=== PATIENT | male | born 1950 | race Caucasian/White ===

== ENCOUNTER → 2016-08-21 | Outpatient (CLI) | payer BC, OTHER ==
[~2016-08-21] VITALS: Ht 177.8 cm; Wt 108.0 kg
[~2016-08-21] MED LIST: ASPI1TAB83 PO; GARL10007 PO; GLIP-197 PO; LISI-461 PO; METF1TAB53 PO; METO1TAB69 PO; MULT-1027 PO; OMEG10007 PO; POTA20TA16 PO; SIMV40TA2 PO
[2016-08-21 14:10] VITALS: Ht 177.8 cm; Wt 108.0 kg
--- NOTE | 2016-08-21 14:49 | PAT Medication Instructions ---
Service Date Aug 21, 2016. Current Home Medication List Aspirin (Aspirin), 1 TAB PO QAM Fish Oil (Douglas-3), 1 CAP PO QAM Garlic (Garlic), 1 TAB PO QAM Glipizide (Glipizide Er), 1 TAB PO QAM Lisinopril (Zestril), 10 MG PO QAM Metformin Hcl (Glucophage Ext Rel), 1,000 MG PO BID Metoprolol Succ (Toprol Xl) (Toprol-Xl ), 100 MG PO QAM Multiple Vitamin (Multi Vitamin), 1 TAB PO QAM Potassium Ext Rel (Klor-Con), 20 MEQ PO QAM Simvastatin (Zocor), 40 MG PO QAM Medication Instructions For Your Scheduled Surgery - Hold the following medications 2 weeks prior to surgery: Fish Oil (Douglas-3), 1 CAP PO QAM Garlic (Garlic), 1 TAB PO QAM - Hold the following medications 48 hours prior to surgery: Metformin Hcl (Glucophage Ext Rel), 1,000 MG PO BID - Hold the following medications the morning of surgery: Multiple Vitamin (Multi Vitamin), 1 TAB PO QAM Potassium Ext Rel (Klor-Con), 20 MEQ PO QAM Lisinopril (Zestril), 10 MG PO QAM Glipizide (Glipizide Er), 1 TAB PO QAM - Take the following medications the morning of surgery with a sip of water: Simvastatin (Zocor), 40 MG PO QAM Metoprolol Succ (Toprol Xl) (Toprol-Xl ), 100 MG PO QAM Aspirin (Aspirin), 81MG TAB PO QAM (okay to continue per surgeon) If you have any questions please call us at [phone] or [phone] or [phone]
[2016-08-21 15:19] LABS: BASO % 0.2 %; BASO ABS # 0.01 K/uL (0-0.2); COMPLETE YES; EOS % 2.5 %; HEMATOCRIT 44.1 % (42-52); IG% 0.2 %; LYMPH % 36.6 %; LYMPH ABS # 2.16 K/uL (1.2-3.4); MEAN CELL VOLUME 92.3 fL (80-100); MEAN CORPUSCULAR HEMOGLOBIN 32.8 pg (25-34); MEAN CORPUSCULAR HGB CONC 35.6 g/dl (32-36); MEAN PLATELET VOLUME 9.4 fL (7.4-10.4); MONO % 7.1 %; NEUT % 53.4 %; PLATELET COUNT 135 K/uL (130-400); RED BLOOD COUNT 4.78 M/uL (4.7-6.1)
[2016-08-21 15:22] LABS: URINE APPEARANCE CLEAR (CLEAR); URINE BILIRUBIN NEG (NEG); URINE COLOR YELLOW; URINE NITRITE NEG (NEG); URINE SPECIFIC GRAVITY 1.034 (1.000-1.030); UROBILINOGEN NEG (NEG); ZZUR CULT IF INDIC CLEAN CATCH NO
[2016-08-21 15:26] LABS: MANUAL MICROSCOPIC REQUIRED? NO; REVIEW REQ? NO
--- NOTE | 2016-08-21 15:28 | DIAGNOSTIC IMAGING REPORT ---
TWO VIEW CHEST CLINICAL HISTORY: Preoperative examination. FINDINGS: PA and lateral chest radiographs are compared to study dated 10/02/2012. The heart is top normal for projection. The mediastinal contour is within normal limits. The lungs and pleural spaces are clear. There is no pneumothorax. The bony thorax appears intact. Degenerative change is noted throughout the thoracic spine. IMPRESSION: No active disease in the chest. Electronically signed by: Keaton Pavon M.D. 08/21/2016 3:26 PM Dictated Date/Time: 08/21/2016 3:26 PM
[2016-08-21 15:29] LABS: INR 0.9 (0.9-1.1); PARTIAL THROMBOPLASTIN RATIO 0.9
[2016-08-21 16:05] LABS: BUN/CREATININE RATIO 17.4 (10-20); CALCIUM 9.1 mg/dl (8.5-10.1); CREATININE 0.85 mg/dl (0.60-1.40); POTASSIUM 4.8 mmol/L (3.5-5.1)
[2016-08-22 06:13] LABS: ESTIMATED AVERAGE GLUCOSE 214 mg/dl; HA1C FLAG Normal (Normal)
== END | disposition home or self-care (01) ==
LOC: C.LAB 08:00 → EDSTATUS 09-26 13:45
PROVIDERS: ATTEND Orthopaedic Surgery Sports Medicine
DX: Z01.810 Encounter for preprocedural cardiovascular examination (principal); Z01.811 Encounter for preprocedural respiratory examination; Z01.812 Encounter for preprocedural laboratory examination; R94.31 Abnormal electrocardiogram [ECG] [EKG]

== ENCOUNTER → 2017-03-05 | Outpatient (CLI) | payer OTHER ==
[~2017-03-05] MED LIST changes: +METO100T44 PO; -METO1TAB69 PO
== END | disposition home or self-care (01) ==
LOC: C.LABMFLN 11:26
PROVIDERS: ATTEND Orthopaedic Surgery Sports Medicine
DX: Z01.810 Encounter for preprocedural cardiovascular examination (principal); Z01.811 Encounter for preprocedural respiratory examination; Z01.812 Encounter for preprocedural laboratory examination

== ENCOUNTER 2017-04-17 04:45 | Inpatient (IN) | payer OTHER ==
[2017-03-05 12:17] LABS: BASO % 0.3 %; BASO ABS # 0.02 K/uL (0-0.2); EOS % 2.5 %; EOS ABS # 0.18 K/uL (0-0.5); HEMATOCRIT 50.2 % (42-52); HEMOGLOBIN 17.8 g/dL (14.0-18.0); IG# 0.02 K/uL (0.00-0.02); LYMPH % 26.9 %; LYMPH ABS # 1.92 K/uL (1.2-3.4); MEAN CELL VOLUME 94.4 fL (80-100); MEAN CORPUSCULAR HEMOGLOBIN 33.5 pg (25-34); MEAN CORPUSCULAR HGB CONC 35.5 g/dl (32-36); MEAN PLATELET VOLUME 9.7 fL (7.4-10.4); MONO % 10.4 %; MONO ABS # 0.74 K/uL (0.11-0.59); NEUT % 59.6 %; NEUT ABS # 4.26 K/uL (1.4-6.5); PLATELET COUNT 144 K/uL (130-400); RED CELL DISTRIBUTION WIDTH CV 13.1 % (11.5-14.5); RED CELL DISTRIBUTION WIDTH SD 44.9 fL (36.4-46.3); WHITE BLOOD COUNT 7.14 K/uL (4.8-10.8)
[2017-03-05 12:35] LABS: PTT PATIENT 24.4 SECONDS (21.0-31.0)
[2017-03-05 12:37] LABS: ALBUMIN 4.2 gm/dl (3.4-5.0); BLOOD UREA NITROGEN 19 mg/dl (7-18); CALCIUM 9.5 mg/dl (8.5-10.1); CARBON DIOXIDE 27 mmol/L (21-32); CREATININE 0.89 mg/dl (0.60-1.40); GLUCOSE 154 mg/dl (70-99); POTASSIUM 4.5 mmol/L (3.5-5.1); SODIUM 137 mmol/L (136-145)
[2017-03-12 15:17] VITALS: Ht 177.8 cm; Wt 100.0 kg
--- NOTE | 2017-04-16 19:27 | HISTORY & PHYSICAL EXAMINATION ---
DATE OF ADMISSION: 04/17/2017 CHIEF COMPLAINT: Chronic left knee pain. HISTORY OF PRESENT ILLNESS: This is a 66-year-old male patient of Dr. Philip's complaining of chronic left knee pain, longstanding, now progressively getting worse. He has been diagnosed with end-stage osteoarthritis per clinical and radiographic exams. The patient has failed conservative treatment including anti-inflammatories and the use of assistive devices. The patient has pain with weightbearing activities and his pain does interfere with his activities of daily living. PAST MEDICAL HISTORY: Angina, coronary artery disease status post an LA in 2006, hypertension, diabetes mellitus, osteoarthritis, dental issues, kidney stones. SOCIAL HISTORY: Nonsmoker, nondrinker. PAST SURGICAL HISTORY: Right and left shoulder surgery. FAMILY HISTORY: Noncontributory. REVIEW OF SYSTEMS: Left knee pain chronically. Otherwise, denies any shortness of breath, chest pain, nausea, vomiting or any other joint complaints. MEDICATIONS: Aspirin 81 mg daily, fish oil daily, garlic daily, Jardiance 10 mg daily, lisinopril 10 mg daily, metformin 1000 mg b.i.d., metoprolol 100 mg daily, multivitamin daily, Nitrostat 0.4 mg as needed sublingual, potassium chloride 20 mEq daily, Zocor 40 mg daily. ALLERGIES: PENICILLIN, AMPICILLIN. PHYSICAL EXAMINATION: GENERAL: Well-developed, well-nourished 66-year-old male, known to Dr. Philip. He is in no acute distress. He is alert and oriented x3 and pleasant. HEENT: Normocephalic, atraumatic. Extraocular motions are intact. Pupils are equal and reactive to light. HEART: Regular, tachycardic rhythm. LUNGS: Clear. ABDOMEN: Soft and nontender, bowel sounds are present. EXTREMITIES: Left knee he has crepitation with a limited range of motion of 0-130 degrees. He has a varus deformity. He has medial joint line tenderness with a positive effusion. He has 5/5 strength. Neurologically and neurovascularly he is intact in the left lower extremity. DIAGNOSES: Left knee end-stage osteoarthritis, history of angina, coronary artery disease status post an LA in 2006, hypertension, diabetes mellitus, osteoarthritis, dental issues, kidney stones. PLAN: The patient was advised of his diagnosis. Indications, risks, benefits, and postop course have all been reviewed. The patient wishes to proceed with a left total knee arthroplasty. Necessary consent forms, preoperative testing and clearances will be obtained.
[~2017-04-17] VITALS: Ht 177.8 cm; Wt 100.0 kg
[2017-04-17] VITALS (7 sets, daily range): BP systolic 102–139; BP diastolic 69–95; PULSE 76–91; TEMP 36.4–36.7; O2SAT 91–98
[~2017-04-17 04:45] MED LIST changes: +EMPA1TAB PO; +METF-384 PO; +METO100T14 PO; -METO100T44 PO; +NTRGSL/4 UT
[2017-04-17] MEDS ORDERED: ACETAMINOPHEN 500 MG TAB PO SCH (06:00)
[2017-04-17] MEDS ORDERED: GABAPENTIN 600 MG PO SCH (06:00)
[2017-04-17] MEDS ORDERED: ROPIVACAINE 5MG/ML 30 ML 150 MG, BUPIVACAINE 0.5% MPF INJ 30 ML, EpINEphrine HCL INJ 0.... INFIL SCH ×7 (06:00)
[2017-04-17] MEDS ORDERED: FAMOTIDINE 20 MG TAB PO SCH (06:00)
[2017-04-17] MEDS ORDERED: CeleBREX 200 MG CAP PO SCH (06:00)
[2017-04-17] MEDS ORDERED: VANCOMYCIN INJ 1,500 MG in SODIUM CHLORIDE 0.9% 500ML 500 ML IV SCH ×2 (06:00→20:00)
[2017-04-17] MEDS ORDERED: LACTATED RINGER'S 1000ML 1,000 ML IV SCH (06:00)
[2017-04-17] MEDS ORDERED: LACTATED RINGER'S 1000ML 500 ML IV SCH (06:00)
[2017-04-17] MEDS ORDERED: METOCLOPRAMIDE HCL 10 MG TAB PO SCH (06:00)
[2017-04-17] MEDS ORDERED: BUPIVACAINE 0.5 % 5 MG/1 ML PF 10ML VIAL ONE (06:25)
[2017-04-17] MEDS ORDERED: BUPIVACAINE 0.25% 30 ML VIAL ONE (06:25)
[2017-04-17] MEDS ORDERED: MIDAZOLAM HCL 1 MG/ML 2ML VIAL ONE (06:32)
[2017-04-17] MEDS ORDERED: FENTANYL CITRATE INJ 50 MCG/1 ML 2 ML VIAL ONE (06:33)
[2017-04-17] MEDS ORDERED: ONDANSETRON INJ 2 MG/ML 2 ML VIAL ONE (06:33)
[2017-04-17] MEDS ORDERED: PROPOFOL IV EMULSION 10 MG/ML 20 ML VIAL IV ONE ×2 (06:33→08:41)
[2017-04-17] MEDS ORDERED: LIDOCAINE HCL 2% 2 ML VIAL (20MG/ML) ONE (06:33)
[2017-04-17] MEDS ORDERED: BACITRACIN 50000 UNIT VIAL ONE (06:53)
[2017-04-17] MEDS ORDERED: ORTHO JOINT ANESTHETIC ONE (06:53)
[2017-04-17] MEDS ORDERED: POVIDONE-IODINE OP SOLN 30 ML BTL ONE (06:53)
--- NOTE | 2017-04-17 07:26 | History & Physical Bridge Note ---
H&P Re-Evaluation Bridge Note: I have examined the patient, reviewed the History & Physical and in the interval since the performance of the History & Physical I have noted the following changes of clinical significance: No changes noted
[2017-04-17] MEDS ORDERED: ATROPINE SULFATE 0.1 MG/ML 5ML SYR IV PRN (07:45)
[2017-04-17] MEDS ORDERED: EpHEDrine SULFATE INJ 50 MG/ML AMP IV PRN (07:45)
[2017-04-17] MEDS ORDERED: EpHEDrine SULFATE INJ 50 MG/ML AMP ONE (07:49)
--- NOTE | 2017-04-17 09:32 | [facility] Post Operative Brief Note ---
Immediate Operative Summary Operative Date Apr 17, 2017. Pre-Operative Diagnosis Left Knee End-Stage Osteoarthritis Post-Operative Diagnosis same as pre-operative Procedure(s) Performed Left Total Knee Arthroplasty Surgeon Dr. Alhaji Philip [facility] [facility] Director Surgeon(s) Rober Bejarano PA-C Estimated Blood Loss 5mL Findings Consistent with Post-Op Diagnosis Specimens Permanent: A. Left Knee Bone and Tissue Drains 2 hemovac Anesthesia Type MAC Spinal Regional Complication(s) none Disposition Disposition: Recovery Room / PACU
[2017-04-17] MEDS ORDERED: METOCLOPRAMIDE HCL INJ 5 MG/ML 2 ML VIAL IV PRN (09:45)
[2017-04-17] MEDS ORDERED: MAGNESIUM HYDROXIDE SUSP 30 ML UDC PO PRN (09:45)
[2017-04-17] MEDS ORDERED: VANCOMYCIN CONSULT ACTIVE PRN (09:45)
[2017-04-17] MEDS ORDERED: NITROGLYCERIN 0.4 MG SL PER TAB CHARGE UT SCH (09:45)
[2017-04-17] MEDS ORDERED: BISACODYL 10 MG SUPP PR PRN (09:45)
[2017-04-17] MEDS ORDERED: ONDANSETRON INJ 2 MG/ML 2 ML VIAL IV PRN (09:45)
[2017-04-17] MEDS ORDERED: MoRPHine SULFATE 2 MG/ML CARP IV PRN (09:45)
[2017-04-17] MEDS ORDERED: SOD PHOSPHATE/SOD BIPHOSPHATE ENEMA 132 ML BTL PR PRN (09:45)
[2017-04-17] MEDS ORDERED: ZOLPIDEM TARTRATE 5 MG TAB PO PRN (09:45)
--- NOTE | 2017-04-17 10:12 | Anesthesiology Progress Note ---
Anesthesia Post Op Note Date & Time Apr 17, 2017 at 10:12 Vital Signs Pain Intensity: 0 Vital Signs Past 12 Hours Date Time Temp Pulse Resp B/P (MAP) Pulse Ox O2 Delivery O2 Flow Rate FiO2 04/17/17 09:55 36.4 88 16 120/80 97 Nasal Cannula 3 04/17/17 09:45 82 18 110/77 98 Oxymask 3 04/17/17 09:37 36.5 82 17 111/68 98 Oxymask 5 04/17/17 06:10 36.6 76 20 139/95 96 Room Air Notes Mental Status: alert / awake / arousable, participated in evaluation Pt Amnestic to Procedure: Yes Nausea / Vomiting: adequately controlled Pain: adequately controlled Airway Patency, RR, SpO2: stable & adequate BP & HR: stable & adequate Hydration State: stable & adequate Neuraxial Anesthesia: was administered, sensory block is resolving Anesthetic Complications: no major complications apparent
--- NOTE | 2017-04-17 10:27 | DIAGNOSTIC IMAGING REPORT ---
L KNEE 2 VIEWS ROUTINE CLINICAL HISTORY: Degenerative arthritis COMPARISON: September 2012 DISCUSSION: There are postsurgical changes of a total left knee arthroplasty and patellar resurfacing. The femoral and tibial components appear well seated. Overlying skin swapnil and surgical drains are evident. There is air within soft tissues consistent with recent surgery. IMPRESSION: Postsurgical changes of a total left knee arthroplasty. Electronically signed by: Rigo Hernandez M.D. 04/17/2017 10:26 AM Dictated Date/Time: 04/17/2017 9:54 AM
[2017-04-17] MEDS ORDERED: INSULIN ASPART 100 UNITS/ML 3 ML PEN SC SCH (11:00)
[2017-04-17] MEDS ORDERED: GLUCAGON FOR INJ 1 MG VIAL SQ PRN ×2 (11:15→11:45)
[2017-04-17] MEDS ORDERED: GLUCOSE 10 TABS/TUBE PO PRN ×2 (11:15→11:45)
[2017-04-17] MEDS ORDERED: MoRPHine SULFATE 4 MG/ML 1 ML CARP\\VIAL IV PRN (11:15)
[2017-04-17] MEDS ORDERED: GLUCOSE 40% GEL 15 GM TUBE PO PRN ×2 (11:15→11:45)
[2017-04-17] MEDS ORDERED: DEXTROSE 50% 50 ML SYR IV PRN ×2 (11:15→11:45)
[2017-04-17] MEDS ORDERED: DC ALL PREVIOUSLY ORDERED DIABETES MEDS ONE (11:45)
--- NOTE | 2017-04-17 11:53 | OPERATIVE REPORT ---
DATE OF OPERATION: 04/17/2017 HISTORY OF PRESENT ILLNESS: The patient is a 66-year-old male who presented with chronic bilateral knee pain, left greater than right. He has had arthroscopic surgery of his left knee in the past. He has had extensive conservative management and progressive osteoarthritis over time. He is now bone on bone in the medial compartment, both of his knees. PREOPERATIVE DIAGNOSIS: End-stage osteoarthritis of the left knee. POSTOPERATIVE DIAGNOSIS: Same. PROCEDURE: Left total knee arthroplasty. SURGEON: Dr. Alhaji Philip. FEEDER DRIVER: IVAN Cagle. ANESTHESIA: Spinal sedation, adductor nerve block and Orthomix. OPERATIVE PROCEDURE: The patient was taken to the operating room, anesthetized under anesthesia as dictated. He was placed supine on the operating room table. Pneumatic tourniquet was placed about his left upper thigh. Left lower extremity was examined under anesthesia. He had no instability. He had full range of motion and a varus knee. He did not have a significant effusion. His tibial tubercle was slightly prominent. His left lower extremity was prepped and draped with ChloraPrep. Leg was elevated, exsanguinated with Esmarch bandage. Pneumatic tourniquet was raised to 300 mmHg. Anterior incision made across the left knee. Skin was incised sharply. Subcutaneous tissues were dissected to expose the fascia. An incision was made through the medial retinaculum and extended up in the mid third of the quadriceps tendon and extended down to the medial tibial tubercle. Intraarticular findings demonstrated grade 4 [id number] in the medial compartment, which had previous partial medial meniscectomy. He had some tearing of the lateral meniscus. Cruciate ligaments were intact. He had some areas of grade 4 wear on the lateral femoral condyle as well. I used the [employer] 2.0 total knee arthroplasty system. We used conventional instrumentation. To expose the knee, I excised the infrapatellar fat pad, excised the meniscal remnants and excised the cruciate ligaments. I released lateral synovial bands. Excised the fat pad over the anterior surface of the femur for the placement of the flange of the component in that area. The femur was exposed. Intramedullary drill hole was made into the femoral canal. The guide astrid was placed and the distal femoral cutting guide was set at 5 degrees valgus and a standard distal femoral cut was made. The knee was then extended and a subperiosteal peel lateral release was performed around the patella. Patella width was measured and width was reproduced using a freehand cut technique and a 35-mm domed patellar component. Drill holes were made for the patella. The excess lateral facet was beveled off to prevent any impingement. The femur was re-exposed with better retraction. The sizing guide was pinned in position and placed to line up with the epicondylar access just over 3 degrees of external rotation. The femur was sized for a 7, which corresponded with our preoperative templating. The 5-1 cutting block was then placed. Then, the anterior, posterior and chamfer cuts were made on the femur. Then, the tibia was subluxed and the external tibial cutting guide was used to make a perpendicular cut to the long axis of the tibia. We made this below the most efficient medial side. The lamina slab puller was used to help balance the ligaments. Then, the tibia was re-exposed. The tibia was sized for a 6 tibial component. It was externally rotated in line with the tibial tubercle and this was pinned in position and the punch for the stem was used. Then, the 7 femoral trial was inserted and centered and the notch cutting devices were used. A collet was placed and we did a trial insert size 9 and there was tightness in the anterior medial compartment of the knee only with the anterior most band of the MCL being tight, so I went ahead and used the lamina slab puller, pie crusted this small band and then balanced the ligaments perfectly and an 11-insert was placed and the knee had a complete stable range of motion through full range of motion and it was completely balanced and the patella tracked centrally. The trials were removed and the anesthetic cocktail was injected per protocol. The knee was copiously irrigated with pulsatile lavage antibiotic solution and bacitracin. The final components were cemented with Simplex cement. Final components were the 7 Oxinium left posterior stabilized [employer] 2.0 femur, the 6 tibial primary base plate, the 11-mm high flex posterior stabilized tibial insert, and the 35-mm domed patella. All excess cement was cleared. Betadine soak was used per protocol. When the cement cured, the knee was again irrigated out with antibiotic solution and bacitracin. Two drains were brought out laterally and connected to a Hemovac. The quadriceps tendon and medial retinaculum were closed with interrupted [id number] #1 Vicryl sutures. The knee was taken through full range of motion and repair was secure. Subcutaneous tissue was closed with 2-0 Vicryl sutures. Skin was closed with swapnil. Silverlon sterile dressing was applied. The patient tolerated the procedure well with 5 mL of blood loss. IVAN Cagle, was my first cook. He functioned as the first cook in the entire procedure. He assisted in prepping, draping, leg positioning, soft tissue retraction, instrument management and assisted in subcutaneous and skin closure and will participate in postoperative care of the patient. I attest to the content of the Intraoperative Record and any orders documented therein. Any exceptions are noted below. ESPERANZA
--- NOTE | 2017-04-17 12:18 | Medical Consult ---
Consultation Date of Consultation: Apr 17, 2017. Attending Physician: Alhaji Philip M.D. Reason for Consultation: Medical management History of Present Illness Pt is 66 y/o M with PMH CAD, DM II, HTN, HLD is seen as medical consult after L TKA by Dr Philip today. Denies nausea or vomiting. Denies any pain currently. He feels like regaining sensation to lower extremities. Pt reports had 2 BMs this morning prior to surgery. Feels like passing gas since surgery. Denies CP, SOB, PANG, dizziness, cough, fever/chills, diaphoresis, vision changes, neck pain , CP, SOB, palpitations, abdominal pain, rashes. Past Medical/Surgical History Medical Problems: (1) CAD (coronary artery disease) Status: Chronic (2) DM type 2 (diabetes mellitus, type 2) Status: Chronic (3) HTN (hypertension) Status: Chronic (4) Hyperlipidemia Status: Chronic Surgical Problems: (1) History of carpal tunnel surgery of right wrist Status: Resolved (2) Hx of arthroscopy of left knee Status: Resolved (3) Hx of repair of left rotator cuff Status: Resolved Family History Diabetes mellitus Social History Smoking Status: Former Smoker (smoked 0.5ppd x 3 years. Quit 30 years ago) Smokeless Tobacco Use: No Alcohol Use: occasionally Drug Use: none Marital Status: Housing Status: lives with family Allergies Coded Allergies: Penicillins (Verified Allergy, Unknown, RASH, 04/17/17) Current Inpatient Medications Current Inpatient Medications Medications (Trade) Dose Ordered Sig/Viktoriya Route Start Time Stop Time Status Last Admin Dose Admin Acetaminophen (Tylenol Tab) 1,000 mg PREOP PO 04/17/17 06:00 04/17/17 18:00 04/17/17 05:51 1,000 MG Celecoxib (CeleBREX CAP) 200 mg PREOP PO 04/17/17 06:00 04/17/17 18:00 04/17/17 05:51 200 MG Famotidine (Pepcid Tab) 20 mg PREOP PO 04/17/17 06:00 04/17/17 18:00 04/17/17 05:50 20 MG Gabapentin (Neurontin Cap) 600 mg PREOP PO 04/17/17 06:00 04/17/17 18:00 04/17/17 05:50 600 MG Metoclopramide HCl (Reglan Tab) 10 mg PREOP PO 04/17/17 06:00 04/17/17 18:00 04/17/17 05:50 10 MG Ephedrine Sulfate (EpHEDrine SULFATE INJ) 5 mg Q5M PRN IV 04/17/17 07:45 04/17/17 12:30 Atropine Sulfate (Atropine Sulfate 0.1mg/ml Inj) 0.5 mg Q1M PRN IV 04/17/17 07:45 04/17/17 12:30 Lisinopril (Zestril Tab) 10 mg QAM PO 04/18/17 09:00 05/18/17 08:59 Metoprolol Tartrate (Lopressor Tab) 100 mg QAM PO 04/18/17 09:00 05/18/17 08:59 Nitroglycerin (Nitrostat Tab) 0.4 mg PRN UT 04/17/17 09:45 05/17/17 09:44 Potassium Chloride (Klor-Con Tab) 20 meq QAM PO 04/18/17 09:00 05/18/17 08:59 Simvastatin (Zocor Tab) 40 mg QAM PO 04/18/17 09:00 05/18/17 08:59 Sodium Chloride 1,000 ml @ 100 mls/hr Q10H IV 04/17/17 11:15 04/18/17 11:14 Vancomycin HCl 1500 mg/Sodium Chloride 530 ml @ 200 mls/hr Q12H IV 04/17/17 20:00 04/17/17 22:38 Oxycodone HCl (Roxicodone Immediate Rel Tab) 1 TABLET FOR PAIN RATING... Q4H PRN PO 04/17/17 09:45 05/01/17 09:44 Morphine Sulfate (MoRPHine SULFATE INJ) 2 mg Q2H PRN IV 04/17/17 09:45 05/01/17 09:44 Acetaminophen (Tylenol Tab) 1,000 mg Q8H PO 04/17/17 14:00 05/17/17 13:59 Magnesium Hydroxide (Milk Of Magnesia Susp) 30 ml Q6H PRN PO 04/17/17 09:45 05/17/17 09:44 Bisacodyl (Dulcolax Supp) 10 mg DAILY PRN NE 04/17/17 09:45 05/17/17 09:44 Sodium Biphosphate/ Sodium Phosphate (Fleet Enema) 132 ml DAILY PRN NE 04/17/17 09:45 05/17/17 09:44 Docusate Sodium (coLACE CAP) 100 mg BID PO 04/17/17 21:00 05/17/17 20:59 Diphenhydramine HCl (Benadryl Cap) 25 mg Q8H PRN PO 04/17/17 09:45 05/17/17 09:44 Zolpidem Tartrate (Ambien Tab) 5 mg HSZ PRN PO 04/17/17 09:45 05/17/17 09:44 Multivitamins (Multivitamin Tab) 1 tab QAM PO 04/18/17 09:00 05/18/17 08:59 Ondansetron HCl (Zofran Inj) 4 mg Q6H PRN IV 04/17/17 09:45 05/17/17 09:44 Metoclopramide HCl (Reglan Inj) 10 mg Q6H PRN IV 04/17/17 09:45 05/17/17 09:44 Pantoprazole Sodium (Protonix Tab) 40 mg QAM PO 04/18/17 09:00 04/21/17 09:01 Tramadol HCl (Ultram Tab) 1 tablet for pain rating... Q4H PRN PO 04/17/17 09:45 05/17/17 09:44 Aspirin (Ecotrin Tab) 81 mg BID PO 04/17/17 21:00 05/17/17 20:59 Insulin Aspart (novoLOG ASPART) SLIDING SCALE G... ACHS SC 04/17/17 11:00 05/17/17 10:59 Morphine Sulfate (MoRPHine SULFATE INJ) 4 mg Q2H PRN IV 04/17/17 11:15 05/01/17 11:14 Insulin Human Regular (novoLIN-R) SLIDING SCALE IF C... ACHS SC 04/17/17 12:00 05/17/17 11:59 UNV Glucose (Glucose 40% Gel) 15-30 GRAMS 15 GRAMS... UD PRN PO 04/17/17 11:45 05/17/17 11:44 Glucose (Glucose Chew Tab) 4-8 Tablets 4 Tabl... UD PRN PO 04/17/17 11:45 05/17/17 11:44 Dextrose (Dextrose 50% 50ML Syringe) 25-50ML OF 50% DW IV FOR... UD PRN IV 04/17/17 11:45 05/17/17 11:44 Glucagon (Glucagon Inj) 1 mg UD PRN SQ 04/17/17 11:45 05/17/17 11:44 Review of Systems See HPI for pertinent positives & negatives. All other systems reviewed and were otherwise negative Physical Exam Date Time Temp Pulse Resp B/P (MAP) Pulse Ox O2 Delivery O2 Flow Rate FiO2 04/17/17 11:20 85 18 108/70 (83) 98 2.0 04/17/17 10:50 Nasal Cannula 2.0 04/17/17 10:50 Nasal Cannula 04/17/17 10:50 36.6 85 16 102/70 (81) 92 Nasal Cannula 2.0 04/17/17 10:30 80 16 104/76 95 Nasal Cannula 3 04/17/17 10:15 82 16 111/78 95 Nasal Cannula 3 04/17/17 10:05 85 16 119/78 96 Nasal Cannula 3 04/17/17 09:55 36.4 88 16 120/80 97 Nasal Cannula 3 04/17/17 09:45 82 18 110/77 98 Oxymask 3 04/17/17 09:37 36.5 82 17 111/68 98 Oxymask 5 04/17/17 06:10 36.6 76 20 139/95 96 Room Air General Appearance: WD/WN, no apparent distress Head: normocephalic, atraumatic Eyes: normal inspection, PERRL, EOMI, sclerae normal ENT: hearing grossly normal, pharynx normal, + pertinent finding (mucous membranes moist) Neck: supple, no JVD, trachea midline Respiratory/Chest: lungs clear, normal breath sounds, no respiratory distress, no accessory muscle use Cardiovascular: regular rate, rhythm, no murmur, normal peripheral pulses Abdomen/GI: normal bowel sounds, non tender, soft Extremities/Musculoskelatal: normal capillary refill, no pedal edema, + pertinent finding (dressing in place to left knee, sensation to light touch intact bilaterally. pedal pushes and pulls intact bilaterally ) Neurologic/Psych: alert, normal mood/affect, oriented x 3 Skin: normal color, warm/dry Laboratory Results Last 24 Hours Test 04/17/17 09:48 Bedside Glucose 148 mg/dl Assessment & Plan Pt post op day#0 S/P L TKA by Dr Philip -pain management per ortho -wound management per ortho -PT/OT as appropriate -DVT prophylaxis per ortho - ASA 81mg bid -incentive spirometry -monitor H&H for acute blood loss anemia DM II HA1C 02/11 was 6.7 -hold metformin, glipizide, Jardiance -NovoLog sliding scale HTN Stable -continue metoprolol, lisinopril CAD, Hx ND No CP or SOB. Reported cardiac clearance by cardiology prior to surgery -continue ASA, metoprolol, statin DVT Prophylaxis -per ortho Disposition admitted med/surg Full Code Follows with Dr Dozier for routine care Pt was seen with Dr Redding. See addendum ATTENDING NOTE: pt seen and examined, care co ordinated with Parris JEFFRIES 66 yo M with hx of type 2 DM . well controlled on oral meds, CAD underwent elective left knee replacement surgery for end stage DJD recovering well post op no complain of chest pain or SOB , post op pain in left knee well controlled P/E: Gen ; no sign of distress HEENT ; sclera non icteric , PERRLA/EOMI Ht : regular . S1/S2 lungs: CTA abdomen : soft , non tender ext ; s/p left knee replacement , drain and bandage intact , normal peripheral pulse and capillary refill neuro; no focal deficit A/P : Left knee TKA : cont management as per Ortho in agreement with DVT prophylaxis of 81 mg BID TYPE 2 DM well controlled , HB A1c on 02/23/17 6.9 hold oral meds insulin SSI please refer to Parris Trejo PA-C for further discussion of other issues Malinda Redding MD Additional Copies To Russel Dozier M.D.
[2017-04-17] MEDS: ACETAMINOPHEN 500 MG TAB PO SCH ×2 (13:49→21:10)
[2017-04-17] MEDS: INSULIN HUMAN REGULAR SC SCH ×3 (13:53→21:28)
[2017-04-17] MEDS: SODIUM CHLORIDE 0.9% 1000ML 1,000 ML IV SCH (15:51)
[2017-04-17] MEDS: OXYCODONE HCL IR 5 MG TAB (IMMEDIATE RELEASE) PO PRN (15:51)
[2017-04-17] MEDS: TRAMADOL HCL 50 MG TAB PO PRN (20:06)
[2017-04-17] MEDS: DOCUSATE SODIUM 100 MG CAP PO SCH (21:10)
[2017-04-17] MEDS: ASPIRIN 81 MG ECTAB PO SCH (21:10)
[2017-04-18 03:15] VITALS: BP 104/70; PULSE 92; TEMP 37; O2SAT 92
[2017-04-18] MEDS: SODIUM CHLORIDE 0.9% 1000ML 1,000 ML IV SCH ×2 (04:45→07:15)
[2017-04-18] MEDS: ACETAMINOPHEN 500 MG TAB PO SCH ×3 (05:43→21:29)
[2017-04-18 07:26] LABS: HEMATOCRIT 35.9 % (42-52); HEMOGLOBIN 12.4 g/dL (14.0-18.0); MEAN CELL VOLUME 94.5 fL (80-100); MEAN CORPUSCULAR HEMOGLOBIN 32.6 pg (25-34); MEAN CORPUSCULAR HGB CONC 34.5 g/dl (32-36); MEAN PLATELET VOLUME 8.5 fL (7.4-10.4); PLATELET COUNT 102 K/uL (130-400); RED CELL DISTRIBUTION WIDTH CV 13.3 % (11.5-14.5); RED CELL DISTRIBUTION WIDTH SD 45.7 fL (36.4-46.3); WHITE BLOOD COUNT 7.81 K/uL (4.8-10.8)
[2017-04-18 07:57] LABS: CALCIUM 7.7 mg/dl (8.5-10.1); CREATININE 0.83 mg/dl (0.60-1.40); POTASSIUM 5.1 mmol/L (3.5-5.1)
--- NOTE | 2017-04-18 08:25 | Orthopedic Progress Note ---
Orthopedic Progress Note Date of Service Apr 18, 2017. Subjective Post OP Day: 1 Reports: feeling well, pain controlled w PO medications, Denies: complaints, chest pain, SOB, nausea / vomiting, light headedness, calf pain Objective calves soft nontender, N/V intact, capillary refill less than 2 sec., dressing C /D/I, A&O x3, toes mobile Date Time Temp Pulse Resp B/P (MAP) Pulse Ox O2 Delivery O2 Flow Rate FiO2 04/18/17 07:15 Room Air 04/18/17 03:15 37.0 92 16 104/70 (81) 92 Room Air 04/17/17 23:15 36.7 91 18 103/71 (82) 91 Room Air 04/17/17 20:17 36.5 88 19 107/69 (82) 93 Room Air 04/17/17 18:45 Room Air 04/17/17 15:13 36.4 79 19 122/80 (94) 97 Nasal Cannula 2.0 04/17/17 12:17 81 18 108/70 (83) 96 Nasal Cannula 2.0 04/17/17 11:20 85 18 108/70 (83) 98 2.0 04/17/17 10:50 Nasal Cannula 2.0 04/17/17 10:50 Nasal Cannula 04/17/17 10:50 36.6 85 16 102/70 (81) 92 Nasal Cannula 2.0 04/17/17 10:30 80 16 104/76 95 Nasal Cannula 3 04/17/17 10:15 82 16 111/78 95 Nasal Cannula 3 04/17/17 10:05 85 16 119/78 96 Nasal Cannula 3 04/17/17 09:55 36.4 88 16 120/80 97 Nasal Cannula 3 04/17/17 09:45 82 18 110/77 98 Oxymask 3 04/17/17 09:37 36.5 82 17 111/68 98 Oxymask 5 Laboratory Results 24 Hours: Test 04/18/17 07:11 Hematocrit 35.9 % Hemoglobin 12.4 g/dL Assessment & Plan Assessment: POD #1, Left TKA Plan: PT/ OT DVT proph- ASA D/C planning- HH vs. OPPT per medicine. Inhouse Planning Pain Management: Ultram, Morphine, PO Tylenol, Oxy IR DVT Prophylaxis: TEDs, SCDs, ASA Discharge Planning Discharge Planning: home with home health Pain Management: PO Tylenol, Oxy IR DVT Prophylaxis: TEDs, ASA Therapy: Physical Therapy, Occupational Therapy
--- NOTE | 2017-04-18 08:26 | Discharge Instructions ---
Discharge Instructions Date of Service Apr 18, 2017. Admission Reason for Admission: Left Knee Degenerative Joint Disease Discharge Discharge Diagnosis / Problem: Left TKA Discharge Goals Goal(s): Improve function Activity Recommendations Activity Limitations: as noted below . Instructions / Follow-Up Instructions / Follow-Up ACTIVITY RECOMMENDATIONS: SELF CARE INSTRUCTIONS AFTER TOTAL KNEE REPLACEMENT A. You may need to continue a physical therapy program after discharge from the hospital. There are several options available to you. Your doctor will assist you in selecting the best one for you. 1. An out-patient facility 2 to 3 times a week for therapy or home therapy. 2. Continue working on all exercises taught to you in the hospital. Your goals should be to increase bending of your knee to 90 degrees and beyond and to fully straighten your knee. B. You may progress at your own pace from walking with a walker or crutches to a cane; then to no assistive devices. C. Make walking a part of your daily routine. Be up as much as comfortable with rest periods throughout the day. Rest with leg elevation is very important. Use the ice wrap frequently for the first 3-4 weeks. D. There are no restrictions on activities. You may ride in a car, shop, participate in weigh and charge worker and all social activities. E. Wear the long elastic stockings (WICHO hose) 20 hours a day for 2 weeks after surgery. They can be removed several times a day for laundering and for a bath. F. You may shower, no tub baths until cleared by your doctor. SPECIAL CARE INSTRUCTIONS: VERY IMPORTANT TO READ AND REVIEW A. There are a few signs you need to watch for after you are home. Call [facility] if you notice any of the followin. Increased severe knee pain. Some pain is expected especially when you exercise. 2. Increased swelling in your leg or knee; pain or swelling of the calf muscle in either lower leg. 3. Any fluid drainage from the incision. 4. Shortness of breath or chest pain. B. Please call [facility] at if you have any concerns or questions about your operation or recovery. The doctor or his nurse will return your call promptly. C. You must take antibiotics before dental work, bladder, bowel or other surgery. Your doctor will provide you with a permanent care to carry describing this precaution. IMPORTANT: * REMEMBER TO TAKE ASPIRIN, 81 MG, TWICE DAILY FOR 4 WEEKS UNLESS OTHERWISE DIRECTED. THIS IS YOUR BLOOD THINNER. * HIGH RISK PATIENTS MAY BE PRESCRIBED A STRONGER BLOOD THINNER. THIS WILL BE PROVIDED AT DISCHARGE. * CALL IF INCREASED PAIN, REDNESS, DRAINAGE OR FEVER GREATER THAT 101. * WEAR WICHO HOSE 20 HOURS PER DAY FOR 2 WEEKS. * YOU MAY HAVE A LARGE BAND-AID LIKE DRESSING (SILVERON). THIS WILL REMAIN ON YOUR INCISION FOR 7 DAYS, THEN CAN BE REMOVED. IF INCISION IS LEAKING THROUGH DRESSING, CALL THE OFFICE . FOLLOW UP VISIT: If appointment is not already scheduled: Please call [facility] to make a follow-up appointment for 2 weeks after your surgery at . Current Hospital Diet Patient's current hospital diet: Diabetes Type 2 Diet Discharge Diet Recommended Diet: Diabetes Type 2 Diet Procedures Procedures Performed: Left Total Knee Arthroplasty Pending Studies Studies pending at discharge: no Medical Emergencies . Who to Call and When: Medical Emergencies: If at any time you feel your situation is an emergency, please call [phone] immediately. . Non-Emergent Contact Non-Emergency issues call your: Primary Care Provider . "Provider Documentation" section prepared by Rober Bejarano. . VTE Core Measure Inpt VTE Proph given/why not?: Other Anticoagulation (asa), TYeni Ryan, SCD's [place] Drug Monitoring Program Search Results: patient reviewed within database, no issues identified
[2017-04-18 08:38] VITALS: BP 123/79; PULSE 91; TEMP 37.1; O2SAT 95
[2017-04-18] MEDS: MULTIVITAMIN TAB PO SCH (08:57)
[2017-04-18] MEDS: METOPROLOL TARTRATE 100 MG TAB PO SCH (08:57)
[2017-04-18] MEDS: LISINOPRIL 10 MG TAB PO SCH (08:57)
[2017-04-18] MEDS: POTASSIUM CHLORIDE 20 MEQ TABCR PO SCH (08:57)
[2017-04-18] MEDS: SIMVASTATIN 40 MG TAB PO SCH (08:57)
[2017-04-18] MEDS: PANTOprazole SOD 40 MG TAB PO SCH (08:58)
[2017-04-18] MEDS: DOCUSATE SODIUM 100 MG CAP PO SCH ×2 (08:58→21:28)
[2017-04-18] MEDS: ASPIRIN 81 MG ECTAB PO SCH ×2 (08:58→21:28)
[2017-04-18] MEDS: INSULIN HUMAN REGULAR SC SCH ×4 (09:01→21:28)
[2017-04-18] MEDS: OXYCODONE HCL IR 5 MG TAB (IMMEDIATE RELEASE) PO PRN (09:07)
--- NOTE | 2017-04-18 10:34 | Anesthesiology Progress Note ---
Anesthesia Post Op Note Date & Time Apr 18, 2017 at 10:34 Vital Signs Vital Signs Past 12 Hours Date Time Temp Pulse Resp B/P (MAP) Pulse Ox O2 Delivery O2 Flow Rate FiO2 04/18/17 08:38 37.1 91 18 123/79 (94) 95 Room Air 04/18/17 07:15 Room Air 04/18/17 03:15 37.0 92 16 104/70 (81) 92 Room Air 04/17/17 23:15 36.7 91 18 103/71 (82) 91 Room Air Notes Mental Status: alert / awake / arousable, participated in evaluation Pt Amnestic to Procedure: Yes Nausea / Vomiting: adequately controlled Pain: adequately controlled Airway Patency, RR, SpO2: stable & adequate BP & HR: stable & adequate Hydration State: stable & adequate Neuraxial Anesthesia: sensory block resolved Anesthetic Complications: no major complications apparent
[2017-04-18 15:17] VITALS: BP 95/62; PULSE 89; TEMP 37.1; O2SAT 93
[2017-04-18] MEDS: TRAMADOL HCL 50 MG TAB PO PRN (16:51)
--- NOTE | 2017-04-18 22:21 | Progress Note ---
Medicine Progress Note Date & Time of Visit: Apr 18, 2017 at 16:15. Subjective 66 yo diabetic M with h/o heart disease underwent elective L TKA. -doing well post-op -pain controlled -tolerating PO -denies CP or SOB. Objective Last 8 Hrs Date Time Temp Pulse Resp B/P (MAP) Pulse Ox O2 Delivery O2 Flow Rate FiO2 04/18/17 15:17 37.1 89 19 95/62 (73) 93 Room Air 04/18/17 08:38 37.1 91 18 123/79 (94) 95 Room Air Physical Exam: GEN: WNWD, in no acute distress, alert and appropriate HEENT: NC/AT, normal sclerae, MMM CARDIO: reg rate, S1/2 heard without m/g/r LUNGS: CTA bilaterally, no crackles, rales or wheezes, good diaphragmatic excursion ABD: soft, non-tender, non-distended, no rebound or guarding, +BS EXTREMITY: RP and DP palpable 2+ bilat, no LE swelling or edema, extremities are warm and well-perfused. L knee wrapped in GREGORIO. NEURO: CN 2-12 grossly intact, sensation intact throughout SKIN: warm and dry Laboratory Results: 04/18/17 07:11 04/18/17 07:11 Test 03/05/17 10:30 04/18/17 07:11 04/18/17 20:46 Immature Granulocyte % (Auto) 0.3 % White Blood Count 7.14 K/uL (4.8-10.8) Red Blood Count 5.32 M/uL (4.7-6.1) 3.80 M/uL (4.7-6.1) Hemoglobin 17.8 g/dL (14.0-18.0) Hematocrit 50.2 % (42-52) Mean Corpuscular Volume 94.4 fL (80-100) 94.5 fL (80-100) Mean Corpuscular Hemoglobin 33.5 pg (25-34) 32.6 pg (25-34) Mean Corpuscular Hemoglobin Concent 35.5 g/dl (32-36) 34.5 g/dl (32-36) Platelet Count 144 K/uL (130-400) Mean Platelet Volume 9.7 fL (7.4-10.4) 8.5 fL (7.4-10.4) Neutrophils (%) (Auto) 59.6 % Lymphocytes (%) (Auto) 26.9 % Monocytes (%) (Auto) 10.4 % Eosinophils (%) (Auto) 2.5 % Basophils (%) (Auto) 0.3 % Neutrophils # (Auto) 4.26 K/uL (1.4-6.5) Lymphocytes # (Auto) 1.92 K/uL (1.2-3.4) Monocytes # (Auto) 0.74 K/uL (0.11-0.59) Eosinophils # (Auto) 0.18 K/uL (0-0.5) Basophils # (Auto) 0.02 K/uL (0-0.2) Immature Granulocyte # (Auto) 0.02 K/uL (0.00-0.02) Prothrombin Time 10.0 SECONDS (9.0-12.0) Prothromb Time International Ratio 1.0 (0.9-1.1) Activated Partial Thromboplast Time 24.4 SECONDS (21.0-31.0) Partial Thromboplastin Ratio 0.9 Albumin 4.2 gm/dl (3.4-5.0) RDW Standard Deviation 45.7 fL (36.4-46.3) RDW Coefficient of Variation 13.3 % (11.5-14.5) Anion Gap 4.0 mmol/L (3-11) Est Creatinine Clear Calc Drug Dose 106.6 ml/min Estimated GFR () 107.8 Estimated GFR (Non- 93.0 BUN/Creatinine Ratio 19.5 (10-20) Calcium Level 7.7 mg/dl (8.5-10.1) Bedside Glucose 217 mg/dl (70-99) Last 24 Hours Test 04/17/17 16:45 04/17/17 20:36 04/17/17 21:16 04/18/17 07:11 Bedside Glucose 157 mg/dl 176 mg/dl 173 mg/dl White Blood Count 7.81 K/uL Red Blood Count 3.80 M/uL Hemoglobin 12.4 g/dL Hematocrit 35.9 % Mean Corpuscular Volume 94.5 fL Mean Corpuscular Hemoglobin 32.6 pg Mean Corpuscular Hemoglobin Concent 34.5 g/dl RDW Standard Deviation 45.7 fL RDW Coefficient of Variation 13.3 % Platelet Count 102 K/uL Mean Platelet Volume 8.5 fL Sodium Level 136 mmol/L Potassium Level 5.1 mmol/L Chloride Level 104 mmol/L Carbon Dioxide Level 28 mmol/L Anion Gap 4.0 mmol/L Blood Urea Nitrogen 16 mg/dl Creatinine 0.83 mg/dl Est Creatinine Clear Calc Drug Dose 106.6 ml/min Estimated GFR () 107.8 Estimated GFR (Non- 93.0 BUN/Creatinine Ratio 19.5 Random Glucose 172 mg/dl Calcium Level 7.7 mg/dl Assessment & Plan Pt post op day#1 S/P L TKA by Dr Philip -pain management per ortho -wound management per ortho -PT/OT as appropriate -DVT prophylaxis per ortho - ASA 81mg bid -incentive spirometry -monitor H&H for acute blood loss anemia DM II HA1C 02/11 was 6.7 -hold metformin, glipizide, Jardiance -NovoLog sliding scale-meeting inpatient goals. HTN: controlled, continue metoprolol, lisinopril CAD: h/o [place], currently stable and without symptoms. Cont medical management with ASA, metoprolol and statin. DVT Prophylaxis -per ortho Disposition: to home in 1-2 days Full Code [facility] Current Inpatient Medications: Current Inpatient Medications Medications (Trade) Dose Ordered Sig/Viktoriya Route Start Time Stop Time Status Last Admin Dose Admin Lisinopril (Zestril Tab) 10 mg QAM PO 04/18/17 09:00 05/18/17 08:59 04/18/17 08:57 10 MG Metoprolol Tartrate (Lopressor Tab) 100 mg QAM PO 04/18/17 09:00 05/18/17 08:59 04/18/17 08:57 100 MG Nitroglycerin (Nitrostat Tab) 0.4 mg PRN UT 04/17/17 09:45 05/17/17 09:44 Potassium Chloride (Klor-Con Tab) 20 meq QAM PO 04/18/17 09:00 05/18/17 08:59 04/18/17 08:57 20 MEQ Simvastatin (Zocor Tab) 40 mg QAM PO 04/18/17 09:00 05/18/17 08:59 04/18/17 08:57 40 MG Oxycodone HCl (Roxicodone Immediate Rel Tab) 1 TABLET FOR PAIN RATING... Q4H PRN PO 04/17/17 09:45 05/01/17 09:44 04/18/17 09:07 10 MG Morphine Sulfate (MoRPHine SULFATE INJ) 2 mg Q2H PRN IV 04/17/17 09:45 05/01/17 09:44 Acetaminophen (Tylenol Tab) 1,000 mg Q8H PO 04/17/17 14:00 05/17/17 13:59 04/18/17 13:07 1,000 MG Magnesium Hydroxide (Milk Of Magnesia Susp) 30 ml Q6H PRN PO 04/17/17 09:45 05/17/17 09:44 Bisacodyl (Dulcolax Supp) 10 mg DAILY PRN MO 04/17/17 09:45 05/17/17 09:44 Sodium Biphosphate/ Sodium Phosphate (Fleet Enema) 132 ml DAILY PRN MO 04/17/17 09:45 05/17/17 09:44 Docusate Sodium (coLACE CAP) 100 mg BID PO 04/17/17 21:00 05/17/17 20:59 04/18/17 08:58 100 MG Diphenhydramine HCl (Benadryl Cap) 25 mg Q8H PRN PO 04/17/17 09:45 05/17/17 09:44 Zolpidem Tartrate (Ambien Tab) 5 mg HSZ PRN PO 04/17/17 09:45 05/17/17 09:44 Multivitamins (Multivitamin Tab) 1 tab QAM PO 04/18/17 09:00 05/18/17 08:59 04/18/17 08:57 1 TAB Ondansetron HCl (Zofran Inj) 4 mg Q6H PRN IV 04/17/17 09:45 05/17/17 09:44 Metoclopramide HCl (Reglan Inj) 10 mg Q6H PRN IV 04/17/17 09:45 05/17/17 09:44 Pantoprazole Sodium (Protonix Tab) 40 mg QAM PO 04/18/17 09:00 04/21/17 09:01 04/18/17 08:58 40 MG Tramadol HCl (Ultram Tab) 1 tablet for pain rating... Q4H PRN PO 04/17/17 09:45 05/17/17 09:44 04/17/17 20:06 50 MG Aspirin (Ecotrin Tab) 81 mg BID PO 04/17/17 21:00 05/17/17 20:59 04/18/17 08:58 81 MG Morphine Sulfate (MoRPHine SULFATE INJ) 4 mg Q2H PRN IV 04/17/17 11:15 05/01/17 11:14 Insulin Human Regular (novoLIN-R) SLIDING SCALE IF C... ACHS SC 04/17/17 12:00 05/17/17 11:59 04/18/17 13:06 5 UNITS Glucose (Glucose 40% Gel) 15-30 GRAMS 15 GRAMS... UD PRN PO 04/17/17 11:45 05/17/17 11:44 Glucose (Glucose Chew Tab) 4-8 Tablets 4 Tabl... UD PRN PO 04/17/17 11:45 05/17/17 11:44 Dextrose (Dextrose 50% 50ML Syringe) 25-50ML OF 50% DW IV FOR... UD PRN IV 04/17/17 11:45 05/17/17 11:44 Glucagon (Glucagon Inj) 1 mg UD PRN SQ 04/17/17 11:45 05/17/17 11:44
[2017-04-18 22:42] VITALS: BP 117/69; PULSE 102; TEMP 36.6; O2SAT 92
[2017-04-19] MEDS: ACETAMINOPHEN 500 MG TAB PO SCH (05:12)
[2017-04-19] MEDS: OXYCODONE HCL IR 5 MG TAB (IMMEDIATE RELEASE) PO PRN ×2 (07:28→13:33)
[2017-04-19 08:00] VITALS: BP 121/77; PULSE 99; TEMP 36.7; O2SAT 95
[2017-04-19] MEDS ORDERED: ONDA8TAB6 PO (08:22)
[2017-04-19] MEDS ORDERED: ASPI1TAB83 PO (08:22)
[2017-04-19] MEDS ORDERED: ACET-24 PO (08:22)
[2017-04-19] MEDS ORDERED: RXC5 PO (08:22)
--- NOTE | 2017-04-19 08:31 | Orthopedic Progress Note ---
Orthopedic Progress Note Date of Service Apr 19, 2017. Subjective Post OP Day: 3 Reports: feeling well, Denies: chest pain, SOB, nausea / vomiting, light headedness, calf pain Objective calves soft nontender, N/V intact, capillary refill less than 2 sec., dressing C /D/I (SILVERLON), A&O x3, toes mobile Date Time Temp Pulse Resp B/P (MAP) Pulse Ox O2 Delivery O2 Flow Rate FiO2 04/19/17 07:30 Room Air 04/18/17 22:42 36.6 102 18 117/69 (85) 92 Room Air 04/18/17 19:40 Room Air 04/18/17 16:00 Room Air 04/18/17 15:17 37.1 89 19 95/62 (73) 93 Room Air 04/18/17 08:38 37.1 91 18 123/79 (94) 95 Room Air Laboratory Results 24 Hours: Test 04/19/17 07:49 Assessment & Plan Assessment: POD #2, Left TKA Plan: PT/ OT DVT proph- ASA D/C planning- HH vs. OPPT per medicine. PAIN MORE CONTROLLED TODAY. PLAN ON DC HOME THIS AFTERNOON WITH ADVANTAGE. Inhouse Planning Pain Management: Ultram, Morphine, PO Tylenol, Oxy IR DVT Prophylaxis: TEDs, SCDs, ASA Discharge Planning Discharge Planning: home with home health Pain Management: PO Tylenol, Oxy IR DVT Prophylaxis: TEDs, ASA Therapy: Physical Therapy, Occupational Therapy
[2017-04-19 08:57] LABS: HEMATOCRIT 33.2 % (42-52); HEMOGLOBIN 11.3 g/dL (14.0-18.0); MEAN CELL VOLUME 93.3 fL (80-100); MEAN CORPUSCULAR HEMOGLOBIN 31.7 pg (25-34); MEAN PLATELET VOLUME 8.8 fL (7.4-10.4); PLATELET COUNT 103 K/uL (130-400); RED CELL DISTRIBUTION WIDTH CV 13.3 % (11.5-14.5); RED CELL DISTRIBUTION WIDTH SD 45.5 fL (36.4-46.3); WHITE BLOOD COUNT 7.28 K/uL (4.8-10.8)
[2017-04-19] MEDS: MULTIVITAMIN TAB PO SCH (09:16)
[2017-04-19] MEDS: PANTOprazole SOD 40 MG TAB PO SCH (09:16)
[2017-04-19] MEDS: ASPIRIN 81 MG ECTAB PO SCH (09:16)
[2017-04-19] MEDS: SIMVASTATIN 40 MG TAB PO SCH (09:16)
[2017-04-19] MEDS: DOCUSATE SODIUM 100 MG CAP PO SCH (09:16)
[2017-04-19] MEDS: POTASSIUM CHLORIDE 20 MEQ TABCR PO SCH (09:17)
[2017-04-19] MEDS: METOPROLOL TARTRATE 100 MG TAB PO SCH (09:17)
[2017-04-19] MEDS: LISINOPRIL 10 MG TAB PO SCH (09:17)
[2017-04-19] MEDS: INSULIN HUMAN REGULAR SC SCH ×2 (09:21→13:29)
[2017-04-19 09:25] LABS: CALCIUM 8.5 mg/dl (8.5-10.1); CREATININE 0.73 mg/dl (0.60-1.40)
[2017-04-19 13:03] VITALS: BP 121/77; PULSE 99; TEMP 36.7; O2SAT 95
== END 2017-04-19 13:52 | disposition home health service (06) | DRG 470 ==
LOC: C.ACU 04:45 → C.MSN 06:00 → ENRESERV 10:32
PROVIDERS: ADMIT Orthopaedic Surgery Sports Medicine; ATTEND Orthopaedic Surgery Sports Medicine
PROC: 0SRD0J9 Replacement of Left Knee Joint with Synthetic Substitute, Cemented, Open Approach (ICD-10-PCS; principal; 2017-04-17 07:30)
DX: M17.12 Unilateral primary osteoarthritis, left knee (principal); I25.10 Atherosclerotic heart disease of native coronary artery without angina pectoris; I10 Essential (primary) hypertension; E11.9 Type 2 diabetes mellitus without complications; E78.5 Hyperlipidemia, unspecified; E66.9 Obesity, unspecified; Z68.31 Body mass index [BMI] 31.0-31.9, adult; I25.2 Old myocardial infarction; Z95.5 Presence of coronary angioplasty implant and graft; Z87.442 Personal history of urinary calculi; Z98.890 Other specified postprocedural states; Z87.891 Personal history of nicotine dependence; Z79.82 Long term (current) use of aspirin; Z79.84 Long term (current) use of oral hypoglycemic drugs; Z79.899 Other long term (current) drug therapy; Z88.0 Allergy status to penicillin; Z83.3 Family history of diabetes mellitus

== ENCOUNTER 2022-01-03 11:18 | Inpatient (IN) ==
--- NOTE | 2021-12-19 14:48 | PAT Medication Instructions ---
Medication Instructions Date of Service December 19, 2021 Home Medications acetaminophen 500 mg tablet 1,000 mg PO Q8H PRN Pain aspirin 81 mg capsule 81 mg PO BID atorvastatin 40 mg tablet 40 mg PO QAM empagliflozin 25 mg tablet (Jardiance) 25 mg PO QAM metformin 1,000 mg tablet,extended release 24hr 500 - 1,000 mg PO UD metoprolol succinate 25 mg tablet,extended release 24 hr 25 mg PO QAM Men's One Daily tablet 1 tab PO QAM nitroglycerin 0.4 mg sublingual tablet 0.4 mg sublingual UD PRN Chest Pain potassium chloride 20 mEq tablet,extended release 20 meq PO QAM tamsulosin 0.4 mg capsule 0.4 mg PO QAM Continue as directed nitroglycerin 0.4 mg sublingual tablet 0.4 mg sublingual UD PRN Chest Pain (if needed) STOP taking 3 days before surgery empagliflozin 25 mg tablet (Jardiance) 25 mg PO QAM ASK your prescriber and surgeon aspirin 81 mg capsule 81 mg PO BID DO NOT take the morning of surgery metformin 1,000 mg tablet,extended release 24hr 500 - 1,000 mg PO UD Men's One Daily tablet 1 tab PO QAM potassium chloride 20 mEq tablet,extended release 20 meq PO QAM Take morning of surgery With a small sip of water, OTHERWISE NOTHING TO EAT OR DRINK AFTER MIDNIGHT: acetaminophen 500 mg tablet 1,000 mg PO Q8H PRN Pain (if needed) atorvastatin 40 mg tablet 40 mg PO QAM metoprolol succinate 25 mg tablet,extended release 24 hr 25 mg PO QAM tamsulosin 0.4 mg capsule 0.4 mg PO QAM Take evening before surgery acetaminophen 500 mg tablet 1,000 mg PO Q8H PRN Pain (if needed) metformin 1,000 mg tablet,extended release 24hr 500 - 1,000 mg PO UD Other Notes If you have any questions please call us at [phone] or [phone] or [phone] or [phone]
--- NOTE | 2021-12-21 13:27 | Anesthesiology Consultation ---
Date of Service December 21, 2021 Assessment & Plan (1) Encounter for pre-operative examination: - cardiology pre-op evaluation, 12/22/21. - PCP pre-op evaluation 12/26/21 S. PAT testing to be faxed to PCP office for continuity of care. - check BSG am DOS. Chart Review Chart Review: Pending: Refer to Additional Notes / Consult section and Patient seen in Pre Admission Testing Teaching & Discussion Pre-Anesthesia Teaching/Discussion Notes: Instructed NPO after midnight before surgery, except medications with 15 cc of water. Medication instructions provided according to the PAT guidelines. History Surgery Operation Date: 01/03/22 14:45 Proposed Procedures p Left Reverse Total Shoulder Arthroplasty - Alhaji Philip MD Height/Weight Height: 5 ft 10 in Weight: 85.275 kg Allergies Allergy/AdvReac Type Severity Reaction Status Date / Time Penicillins Allergy Unknown RASH Verified 12/19/21 10:18 Medications Home Medications Medication Instructions Recorded Confirmed Last Taken acetaminophen 500 mg tablet 1,000 mg PO Q8H PRN Pain 12/19/21 12/19/21 Unknown aspirin 81 mg capsule 81 mg PO BID 12/19/21 12/19/21 Unknown atorvastatin 40 mg tablet 40 mg PO QAM 12/19/21 12/19/21 Unknown empagliflozin 25 mg tablet 25 mg PO QAM 12/19/21 12/19/21 Unknown (Jardiance) metformin 1,000 mg tablet,extended 500 - 1,000 mg PO UD 12/19/21 12/19/21 Unknown release 24hr metoprolol succinate 25 mg 25 mg PO QAM 12/19/21 12/19/21 Unknown tablet,extended release 24 hr multivitamin with minerals (Men's 1 tab PO QAM 12/19/21 12/19/21 Unknown One Daily tablet) nitroglycerin 0.4 mg sublingual 0.4 mg sublingual UD PRN Chest Pain 12/19/21 12/19/21 Unknown tablet potassium chloride 20 mEq 20 meq PO QAM 12/19/21 12/19/21 Unknown tablet,extended release tamsulosin 0.4 mg capsule 0.4 mg PO QAM 12/19/21 12/19/21 Unknown Past Medical History Medical History (Updated 12/21/21 @ 13:37 by Leslie Schneider PA-C) CAD (coronary artery disease) s/p 6 stents Diabetes mellitus, type 2 NIDDM Hx of renal calculi Hypertension controlled, stable per pt Myocardial Infarction 2006, [facility]>cardiac cath, stents x6; f/u [facility] Patient denies h/o stroke, seizures, heart failure, blood clots or blood transfusions. Exercise / Class Metabolic Activity II 4-5 Yardwork/Stairs/Walk up hill (denies CP or SOB with 1 FOS) Past Surgical History Surgical History (Updated 12/21/21 @ 13:25 by Leslie Schneider PA-C) History of cardiac cath 2006, [place], x6 stents; f/u [facility] [place] History of cystoscopy w/stone basketing History of heart artery stent 2006>[place], stents x6; [facility] [place] History of open reduction and internal fixation (ORIF) procedure lt hand sx History of total left knee replacement (TKR) 04/17/17: SAB at L3-L4 + PNB. Hx of arthroscopy of right knee Hx of carpal tunnel repair RT. Hx of lithotripsy Hx of shoulder surgery x2 Hx of vasectomy Past Anesthesia History No Hx of Anesthesia Complications and No Family Hx of Anesthesia Complications History of PONV No Hx of PONV and No Hx of Motion Sickness Social History Smoking Status: Former smoker Do You Dip or Chew Tobacco: No Smoking End Date: "long time ago" Hx Alcohol Use: Yes Alcohol type: beer alcohol intake frequency: holidays/special occasions only Hx Substance Use: No substance use type: does not use Review of Systems Snoring, denies witnessed apneas. Patient denies chest pain, shortness of breath, dyspnea on exertion, reflux, fever, chills, cough, wheezing, or palpitations. Physical Exam Vital Signs Vitals BP 142/80 P 108 (Pt states is often quite anxious in medical settings) SP02 95% on RA RESP 18 Physical Full cervical extension range of motion without pain TMD 3.5 finger breadths Mallampati Score 1 Dentition: intact, denies chipped or loose teeth, caps/crowns, implants or bridges Lungs: normal respiratory effort. Clear throughout to auscultation, no adventitious breath sounds Cardiac: tachycardiac rate, regular rhythm, no murmurs noted Carotid arteries: negative bruit bilat Lab Results Anesthesia Preop Results Results Anesthesia Widget: WBC 5.76 K/ul (4.8-10.8) 12/21/21 Hgb 16.0 g/dl (14.0-18.0) 12/21/21 Hct 45.5 % (40.1-51.0) 12/21/21 Plt 141 K/uL (130-400) 12/21/21 Na 139 mmol/L (136-145) 12/21/21 K 5.1 mmol/L (3.5-5.1) 12/21/21 Cl 101 mmol/L (98-107) 12/21/21 CO2 30 mmol/L (21-32) 12/21/21 BUN 17 mg/dl (6-23) 12/21/21 Creat 0.76 mg/dl (0.6-1.4) 12/21/21 Glucose Level 201 mg/dl (70-99(Fasting)) H 12/21/21 PT 10.6 Seconds (9.0-12.0) 12/21/21 PTT 24.8 Seconds (21.0-31.0) 12/21/21 INR 1.0 (0.9-1.1) 12/21/21 HA1c 8.4 % (4.5-5.6) H 12/21/21 Urine Color Yellow 12/21/21 Urine Appearance Clear (Clear) 12/21/21 Urine pH 5.5 (4.5-7.5) 12/21/21 Urine Specific Issue 1.044 (1.000-1.030) H 12/21/21 Urine Protein Negative (Negative) 12/21/21 Urine Glucose (UA) 3+ (Negative) H 12/21/21 Urine Ketones Trace (Negative) H 12/21/21 Urine Blood Negative (Negative) 12/21/21 Urine Nitrite Negative (Negative) 12/21/21 Urine Bilirubin Negative (Negative) 12/21/21 Urine Urobilinogen Negative (Negative) 12/21/21 Urine Leukocyte Esterase Negative (Negative) 12/21/21 Blood Type A Positive 12/21/21 Antibody Screen NEGATIVE 12/21/21 Testing Laboratory Results Surgeon's office made aware of elevated A1c. Electrocardiogram Date: 12/21/21 Sinus tachycardia, rate 106 bpm Inferior infarct, cited on or before 08/19/16, no significant change Chest X-Ray Date: 12/21/21 Cardiomediastinal and hilar silhouettes are within normal limits. Coronary arterial stent. No pneumothorax, pleural effusion, airspace consolidation or overt pulmonary edema. Degenerative changes of the shoulders and spine. Prior left shoulder rotator cuff repair. IMPRESSION: No acute process. Other Testing CT abdomen pelvis 08/28/21 Left flank hematoma measuring 3.4 x 5.5 x 5.6 cm. High-density within the hematoma may reflect an active hemorrhage Coronary artery atherosclerotic disease Scattered areas of cortical scarring Right lower pole cyst Atherosclerotic disease of the aorta and its major branchces Prostate calcifications COVID-19 Risk Screen Screening Information COVID-19 Screen Date: 12/21/21 Exposure 21 Days Family/Household +COVID Last 21 Days: No Exposure 10 Days Any COVID Exposure Last 10 Days: No Symptoms Last 10 Days Experienced COVID Sx Last 10 Days: No + COVID 0-90 Days COVID + in Last 0-90 Days: No
--- NOTE | 2022-01-02 14:02 | History & Physical Report ---
Date of Service January 02, 2022 Assessment & Plan (1) Full thickness rotator cuff tear: Plan: Treatment options discussed with patient. He has failed conservative measures and would like to proceed with surgical intervention. Risks, benefits and alternatives to surgery including but not limited to infection, DVT, pain, stiffness, need for revision surgery, damage to blood vessels, damage to nerves, PE, , were discussed with the patient and they wish to proceed. Plan on left reverse total shoulder arthroplasty scheduled for [facility] on 01/03/[address] Philip. All questions answered. F/u post op. Rotator cuff tear trauma status: traumatic Encounter type: subsequent encounter Laterality: left Qualified Code(s): S46.012D - Strain of muscle(s) and tendon(s) of the rotator cuff of left shoulder, subsequent encounter History of Present Illness Chief Complaint: Left shoulder pain Primary Care Provider: Tom Plata 71yo male with PMHx significant for CAD, DM2, HTN, hx of ND presents with ongoing left shoulder pain. Pain interfering with his daily activity. He has failed conservative measures including injection. He would like to proceed with surgical intervention. Patient denies headaches, sweats, fevers, chills, double vision, blurred vision, cough, sore throat, dysphagia, chest pain, sob, wheezing, n/v/d/c, numbness, tingling, fatigue, urinary symptoms, mood disorders. ROS positive for left shoulder pain and stiffness. Allergies Allergy/AdvReac Type Severity Reaction Status Date / Time Penicillins Allergy Unknown RASH Verified 12/19/21 10:18 Home Medications Medication Instructions Recorded Confirmed Type acetaminophen 500 mg tablet 1,000 mg PO Q8H PRN Pain 12/19/21 12/19/21 History aspirin 81 mg capsule 81 mg PO BID 12/19/21 12/19/21 History atorvastatin 40 mg tablet 40 mg PO QAM 12/19/21 12/19/21 History empagliflozin 25 mg tablet 25 mg PO QAM 12/19/21 12/19/21 History (Jardiance) metformin 1,000 mg tablet,extended 500 - 1,000 mg PO UD 12/19/21 12/19/21 History release 24hr metoprolol succinate 25 mg 25 mg PO QAM 12/19/21 12/19/21 History tablet,extended release 24 hr multivitamin with minerals (Men's 1 tab PO QAM 12/19/21 12/19/21 History One Daily tablet) nitroglycerin 0.4 mg sublingual 0.4 mg sublingual UD PRN Chest Pain 12/19/21 12/19/21 History tablet potassium chloride 20 mEq 20 meq PO QAM 12/19/21 12/19/21 History tablet,extended release tamsulosin 0.4 mg capsule 0.4 mg PO QAM 12/19/21 12/19/21 History Past Med/Surg History Medical History (Updated 01/02/22 @ 14:01 by Hernando Wagner PA-C) CAD (coronary artery disease) s/p 6 stents Diabetes mellitus, type 2 NIDDM Hx of renal calculi Hypertension controlled, stable per pt Myocardial Infarction 2006, hosp. [place]>cardiac cath, stents x6; [facility] Surgical History (Updated 12/21/21 @ 13:25 by Leslie Schneider PA-C) History of cardiac cath 2006, [facility], x6 stents; [facility] History of cystoscopy w/stone basketing History of heart artery stent 2006>[facility], stents x6; [facility] History of open reduction and internal fixation (ORIF) procedure lt hand sx History of total left knee replacement (TKR) 04/17/17: SAB at L3-L4 + PNB. Hx of arthroscopy of right knee Hx of carpal tunnel repair RT. 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 Tenderness anterolateral acromion. Positive impingement signs. Strength testing-3+/5 ER, 4+/5 abduction, 5/5 IR. Active abduction to 10 degrees, FF to 165 degrees. Skin: no rashes, warm and dry Neurologic: patellar DTR's 2+ bilat, sensation intact Psychiatric: A+Ox3, euthymic affect Results & Data ([facility]) Diagnostic Findings Left shoulder: CT scan demonstrates a massive retracted full-thickness tear of his rotator cuff. The tear is retracted about 3 cm to the level of the glenohumeral joint. The tissue that is less retracted appears to be very poor quality and very thin. He does have some humeral head elevation as well as some muscle atrophy.
[~2022-01-03 11:18] MED LIST changes: +ACETAMINOPHEN 500 MG TAB PO SCH; -ASPI1TAB83 PO; +BUPIVACAINE 0.5 % 5 MG/1 ML PF 10ML VIAL ONE; +CeleBREX 200 MG CAP PO SCH; -EMPA1TAB PO; +FAMOTIDINE 20 MG TAB PO SCH; +GABAPENTIN 300 MG CAP PO SCH; -GARL10007 PO; -GLIP-197 PO; -LISI-461 PO; +LR 15ML/HR IV SCH; -METF-384 PO; -METF1TAB53 PO; -METO100T14 PO; +METOCLOPRAMIDE HCL 10 MG TABLET PO SCH; -MULT-1027 PO; -NTRGSL/4 UT; -OMEG10007 PO; -POTA20TA16 PO; -SIMV40TA2 PO; +TRANEXAMIC ACID 1,000 MG **IV Intra-op IV SCH; +TRANEXAMIC ACID 1,000 MG **IV Pre-op IV SCH; +VANCOMYCIN HCL 1,500 MG in SODIUM CHLORIDE 0.9% 500 ML IV SCH
[2022-01-03] MEDS ORDERED: PROPOFOL IV EMULSION 10 MG/ML 20 ML VIAL IV ONE (11:49)
[2022-01-03] MEDS ORDERED: ROCURONIUM BROMIDE 10 MG/ML 5 ML VIAL IV ONE (11:49)
[2022-01-03] MEDS ORDERED: LIDOCAINE 2% MPF LOCAL 5 ML VIAL INFIL ONE (11:49)
[2022-01-03] MEDS ORDERED: DEXAMETHASONE SOD INJ 4 MG/ML VIAL ONE (11:49)
[2022-01-03] MEDS ORDERED: ONDANSETRON INJ 2 MG/ML 2 ML VIAL ONE (11:49)
[2022-01-03] MEDS ORDERED: fentaNYL citrate 100 MCG/2 ML VIAL ONE (11:50)
[2022-01-03] MEDS ORDERED: MIDAZOLAM HCL 1 MG/ML 2ML VIAL ONE (11:50)
--- NOTE | 2022-01-03 13:07 | History & Physical Bridge Note ---
Date of Service January 03, 2022 History & Physical Bridge Note I have examined the patient, reviewed the History & Physical and in the interval since the performance of the History & Physical I have noted the following changes of clinical significance: no changes noted
[2022-01-03] MEDS ORDERED: fentaNYL citrate 100 MCG/2 ML VIAL IV PRN (14:09)
[2022-01-03] MEDS ORDERED: ONDANSETRON INJ 2 MG/ML 2 ML VIAL IV PRN ×2 (14:09→19:04)
[2022-01-03] MEDS ORDERED: ATROPINE SULFATE 0.1 MG/ML 10ML SYR IV PRN (14:09)
[2022-01-03] MEDS ORDERED: ePHEDrine sulfate 50 MG/ML AMP IV PRN (14:09)
--- NOTE | 2022-01-03 17:35 | Operative Report ---
Post Operative Report Pre & Post Diagnosis Operation Date: 01/03/22 14:35 Pre-Op Diagnosis: Full thickness rotator cuff tear, failure rotator cuff repair, irreparable rotator cuff tear, metallic suture anchors from prior repair. Post-Op Diagnosis: Same, chronic biceps tenosynovitis tendinopathy subluxation biceps tendon partial tear subscapularis tendon. I identified the patient and participated in the time-out.: Yes Procedure Operation Date: 01/03/22 14:35 Actual Procedures p Left Reverse Total Shoulder Arthroplasty, excision hardware, Two [place] Removal(Left), biceps tenodesis, cerclage fixation and incomplete fracture proximal humerus.- Alhaji Philip MD Surgeon Alhaji Philip MD Plastics Worker Hawk LOVE Estimated Blood Loss 100 Findings Consistent with Post-Op Diagnosis Specimens Anchors x2 Drains 2 Hemovac Complications Incomplete fracture proximal humerus Disposition Disposition: Recovery Room Indications 71-year-old male with chronic pain weakness after reinjury left shoulder with large retracted rotator cuff tear. History of old rotator cuff repair with metallic anchors. Description of Procedure The patient was taken to the operating room and anesthetized under regional block and general anesthetic. The patient was positioned on the operating table in a 30 beach chair position with a towel roll under the medial border of the left scapula. The arm was draped free to be able to manipulate the shoulder as needed. The left upper extremity was prepped and draped in usual sterile fashion. Exam demonstrated 150 degrees forward flexion 100 degrees abduction 60 degrees external rotation subacromial crepitation. An anterior deltopectoral approach was performed. A longitudinal incision was m roshan in the deltopectoral interval. The skin was incised sharply. Subcutaneous flaps were elevated off the fascia. The cephalic vein was dissected out and retracted lateral with the deltoid. The clavipectoral fascia was divided at the lateral margin of the conjoined tendon and extended up to the CA ligament. The following findings were noted: The subscapularis tendon externally appeared to be intact. The supraspinatus and infraspinatus were torn and retracted and the teres minor was still intact. There was scarred bursa over the rotator cuff. There was bone spurs over the greater tuberosity that were impinging on the acromion. Biceps tendon was subluxed so partial tear of the subscapularis tendon. There was chronic biceps tenosynovitis. The upper centimeter of the pectoralis was released for inferior exposure. A self-retaining retractor was placed. the biceps tendon was tenodesed to the pectoralis tendon with #2 FiberWire. The proximal biceps was resected. The subscapularis muscle fibers were split longitudinally at the level of the circumflex vessels. The circumflex vessels were identified and tied off with silk ties and divided laterally. A Kitner elevator was used to free up the inferior fibers of the subscapularis off of the capsule. The axillary nerve was identified with a tug test and protected with a blunt Alecia retractor between the nerve and the capsule. The subscapularis tendon was then taken down off of the lesser tuberosity subperiosteally, a Vicryl traction suture was placed and a subperiosteal dissection was performed along the neck of the humerus as the arm was gradually externally rotated exposing the humeral head. The humeral head findings demonstrated intact articular surface no significant osteoarthritis no inferior osteophytes.. retractors were readjusted and the Quintero elevator was used to assist in releasing the capsule off the neck of the humerus. The capsule was divided with Post scissors down to the glenoid released off the anterior glenoid and the rotator interval was released to meet the capsular release and a 360 release of the subscapularis was accomplished. A Fukuda retractor was placed into the joint retracting the humeral head posterior. Glenoid findings demonstrated intact articular surface and normal-appearing glenoid but smaller than typical for a male. The labrum and biceps tendon was resected. an ant erior-inferior and posterior inferior capsular release were performed with electrocautery and a Quintero elevator on bone with the axillary nerve protected inferiorly by the retractor. Attention was then taken to the humeral preparation. The cutting guide was placed into the humeral head. It was positioned at 20 of retroversion. Oscillating saw was used to resect the humeral head giving the cut above the level of the posterior rotator cuff insertion site. The humerus was then prepared for the stem. I used the ascend flex stem from [facility]. I first used the starting awl which rubbed up against the metallic anchors. These had to be removed in order to prepare the canal. The 2 anchors were removed with a small rongeur. The sizing broaches were used. A size 4 was initially chosen and the box osteotome used to open up the metaphyseal bone proximally. The patient had very hard sclerotic bone and even using the size 2 broach a small crack developed in the posterior cortical bone of the neck. During the broaching this was starting to separate and widen. It did not propagate distally. In order to prevent propagation I placed a #2 FiberWire with a Nice knot technique. These were placed through a vertical drill hole through the lesser tuberosity to stabilize the fixation as well. A Hewson suture passer was utilized. After the Nice knot was tied I's save the tails to use later in the procedure. Final broaching was completed and I chose to stay with a size 3B long stem. Fixation was stable with this trial broach. The appropriate sized cut protector was placed. The humerus was then retracted posterior to the glenoid. The glenoid was sized for a 25 baseplate and a 36 glenoid sphere. The guide for the baseplate was positioned in a 10 inferior tilt and the central drill hole was made. The reamer for the 25 mm baseplate was used. The central drill was widened for the peg. The aequalis hydroxyapatite-coated 25 mm standard stem length baseplate was impacted into position. The base plate was transfixed with superior and inferior locking screws and anterior and posterior compression screws with stable fixation. The fan reamer was used for the 36 millimeter glenoid sphere. After irrigation the 36 mm glenoid sphere was impacted onto the baseplate and the security screw was tightened. Attention was taken back to the humerus. The cut protector was removed and the plus or high offset humeral tray trial was assembled to the trial stem rotated appropriately to get bony coverage and then screwed in position. A trial reduction was performed. A +6, 36 reversed trial insert demonstrated good stability and no shuck. The trials were removed. 3 drill holes are made into the harder bone in the bicipital groove area and 3 #5 FiberWire sutures were placed transosseously. The canal was irrigated with pulsatile saline solution. The final component was assembled. The final component was Tornier ascend flex 3B long stem assembled to plus or high offset tray with a +6, 36 mm reversed polyethylene insert. This was then impacted into the humerus with a tight press-fit. There was no propagation of the fissure noted previously and fixation was stable. At this time the previously tied suture tails from the Nice knot were wrapped around the humeral shaft again and tied again to reinforce the metaphysis of the proximal humerus. The humeral implant was reduced to the glenoid sphere. Stability was verified. Subscapularis was repaired with the #5 FiberWire sutures using Negro-Nilo suture technique. Lateral row soft tissue repair was performed with #2 FiberWire Negro-Nilo suture with transosseous suture.. The pectoralis was repaired with #2 FiberWire [id number] sutures reinforcing the biceps tendon tenodesis. The arm was taken through a range of motion which demonstrated 120 degrees forward flexion 20 degrees external rotation and 100 degrees abduction. The implant was stable through the range of motion tested. The wound was copiously irrigated. 2 Hemovac drains were placed. The deltopectoral interval was closed with [id number] #1 Vicryl sutures. The subcutaneous tissues were closed with 2-0 Vicryl sutures. The skin was closed with swapnil. Sterile dressings were applied and a shoulder immobilizer. Hawk LOVE, my physician health information assistant acted as data entry assistant throughout the procedure .He performed functions including patient positioning, arm positioning, prepping and draping, soft tissue retraction, instrument management, suture management and performed the subcutaneous and skin closure and will participate in the postoperative care of the patient. I attest to the content of the Intraoperative Record and any orders documented therein. Any exceptions are noted below.
--- NOTE | 2022-01-03 18:23 | XRay Report ---
XR shoulder LT min 2V routine CLINICAL HISTORY: Post shoulder surgery COMPARISON: Left shoulder CT September 27, 2021. FINDINGS: Alignment of the reverse total left shoulder arthroplasty is anatomic. No periprosthetic f racture or unexpected radiopaque foreign body. Skin swapnil are present. There are surgical drains. T here is mild elevation of the left hemidiaphragm, likely similar to prior CT. IMPRESSION: Expected findings following left shoulder arthroplasty. ACT 112: Negative or not required by law. Electronically signed by: Isai Esquivel M.D. 01/03/2022 6:22 PM
--- NOTE | 2022-01-03 18:43 | Anesthesiology Progress Note ---
Date of Service January 03, 2022 Anesthesia Post Procedure Vital Signs Vital Signs: Temp Pulse Pulse Resp BP Pulse Ox O2 Del Method 01/03/22 18:20 36.3 C L 85 19 137/94 97 Nasal Cannula 01/03/22 18:00 89 17 128/85 98 Nasal Cannula 01/03/22 18:10 87 18 134/90 97 Nasal Cannula 01/03/22 17:50 86 20 129/96 98 Nasal Cannula 01/03/22 17:44 36.2 C L 83 16 144/90 H 98 Nasal Cannula 01/03/22 12:14 36.3 C L 95 H 18 144/93 H 97 Room Air O2 Flow Rate 01/03/22 18:20 2 01/03/22 18:00 2 01/03/22 18:10 2 01/03/22 17:50 2 01/03/22 17:44 2 01/03/22 12:14 Transfer of Care Handoff Completed per policy Notes Mental Status: alert / awake / arousable and participated in evaluation Patient Amnestic to Procedure: Yes Nausea / Vomiting: adequately controlled Pain: adequately controlled Airway Patency, RR, SpO2: stable & adequate BP & HR: stable & adequate Hydration State: stable & adequate Anesthetic Complications: no major complications apparent and Pt Satisfied with anesthetic care
[2022-01-03] MEDS ORDERED: MAGNESIUM HYDROXIDE SUSP 30 ML UDC PO PRN (19:04)
[2022-01-03] MEDS: SODIUM CHLORIDE 0.9% 1000ML 1,000 ML IV SCH (19:04)
[2022-01-03] MEDS ORDERED: NALOXONE HCL 0.4 MG/1 ML VIAL/CARP IV PRN (19:04)
[2022-01-03] MEDS ORDERED: VANCOMYCIN CONSULT ACTIVE PRN (19:04)
[2022-01-03] MEDS ORDERED: PHARMACY GLYCEMIC MGMT CONSULT PRN (19:04)
[2022-01-03] MEDS ORDERED: METOCLOPRAMIDE HCL INJ 5 MG/ML 2 ML VIAL IV PRN (19:04)
[2022-01-03] MEDS ORDERED: traMADol HCL 50 MG TABLET PO PRN (19:04)
[2022-01-03] MEDS ORDERED: HYDROmorphone INJ 0.5 MG/0.5 ML SYR IV PRN (19:04)
[2022-01-03] MEDS ORDERED: bisacodyL 10 MG SUPP PR PRN (19:04)
[2022-01-03] MEDS ORDERED: NITROGLYCERIN SL 0.4 MG/TAB TAB SL PRN (19:04)
[2022-01-03] MEDS ORDERED: GLUCAGON FOR INJ 1 MG VIAL IM PRN (19:30)
[2022-01-03] MEDS ORDERED: LANTUS PER UNIT CHARGE SQ ONE (19:30)
[2022-01-03] MEDS ORDERED: CARBOHYDRATES FOR HYPOGLYCEMIA PO PRN (19:30)
[2022-01-03] MEDS ORDERED: GLUCOSE 10 TAB/TUBE PO PRN (19:30)
[2022-01-03] MEDS ORDERED: GLUCOSE 40% GEL 15 GM TUBE PO PRN (19:30)
[2022-01-03] MEDS ORDERED: DEXTROSE 50% 50 ML SYRINGE IV PRN (19:30)
[2022-01-03] MEDS: INSULIN ASPART PER UNIT SC SCH ×2 (20:30→23:02)
[2022-01-03] MEDS ORDERED: SENNA 8.6 MG TAB PO SCH (21:00)
--- NOTE | 2022-01-03 21:07 | Consultation Report ---
DATE OF CONSULT: 01/03/2022. CHIEF COMPLAINT: Status post left total shoulder arthroplasty, reverse. HISTORY OF PRESENT ILLNESS: This is a 71-year-old male with past medical history significant for type 2 diabetes, hypertension, hyperlipidemia, CAD, degenerative disk disease, status post left shoulder arthroplasty, tolerated the procedure okay, has some mild chest pain while taking deep breaths. No shortness of breath, no nausea, no headache, no blurred vision, no double visions. No sore throat, no cough. Not feeling hot or cold. Tolerates regular diet. Resting comfortably and hemodynamically stable. ALLERGIES: TO PENICILLINS, OXYCONTIN. PAST MEDICAL HISTORY: As mentioned above. PAST SURGICAL HISTORY: Right carpal tunnel surgery, left knee arthroscopy, left repair of rotator cuff. MEDICATIONS: The patient is on Tylenol 1000 mg p.o. q. 8 hours p.r.n., aspirin 81 mg p.o. b.i.d., atorvastatin 40 mg p.o. a.m., Jardiance 25 mg p.o. a.m., metformin 1000 mg in a.m. and 500 mg in p.m., multivitamin 1 tablet daily, nitroglycerin 0.4 mg sublingual p.r.n., potassium chloride 20 mEq p.o. daily, Flomax 0.4 mg p.o. daily. FAMILY HISTORY: Significant for father had diabetes; mother has diabetes, stroke, heart disorder. SOCIAL HISTORY: . Quit smoking in 1981. No alcohol use. No drug use. REVIEW OF SYSTEMS: As per HPI. Rest of the review of systems is negative. PHYSICAL EXAMINATION: GENERAL: The patient is of moderate build, not in acute distress. VITAL SIGNS: Temperature 36.3, pulse 85, respiratory rate 19, blood pressure 137/94, oxygen 97% on 2 L. HEENT: Head is atraumatic. NECK: No neck masses. No JVD. CARDIOVASCULAR: S1 and S2 heard. Regular rate and rhythm. No murmur, no gallop. RESPIRATORY SYSTEM: Normal AP diameter. No accessory muscle use. No wheezing, no crackles. ABDOMEN: Soft, bowel sounds present, nontender, no distention. CENTRAL NERVOUS SYSTEM: Alert and oriented. Speech is clear. No facial droop. Obeys simple commands. Moves extremities. EXTREMITIES: Left shoulder in an arm sling. Dressing clean and intact. Extremities, no edema. LABORATORY DATA: Unavailable at this time. ASSESSMENT AND PLAN: This is a 71-year-old male status post left shoulder arthroplasty. 1. Left shoulder arthroplasty: Management as per Orthopedics. 2. History of coronary artery disease: On aspirin, statin and beta enoc. 3. Hypertension: On beta enoc. Monitor the blood pressure. 4. Diabetes: Holding Jardiance and metformin. On insulin sliding scale. Follow the blood sugar. 5. Hyperlipidemia: On statin. 6. Chest discomfort while taking deep breath. Mostly from procedure. Will monitor. 7. Deep venous thrombosis prophylaxis and disposition as per Orthopedics. Job ID: [id number] [facility]
--- NOTE | 2022-01-03 21:19 | Pharmacy Report ---
Pharmacy Glycemic Short Note 2 - Date of Service January 03, 2022 - Glycemic Short BSG Results (Last 24 hours): 01/03/22 01/03/22 01/03/22 12:17 17:56 19:13 POC Glucose 158 H 176 H 177 H OUTPATIENT ANTIDIABETIC REGIMEN: * Metformin 1 g PO qAM, 500 mg w/ lunch, and 1000 mg HS * Jardiance 25 mg PO daily HbA1c: 8.4% (12/21/21) ASSESSMENT: * RH is a 71 year male POD #0 s/p left reverse total shoulder * Received 4 mg IV dexamethasone in OR w/ no ongoing steroids ordered * A1c suggests suboptimal outpatient glycemic control with oral agents * Preop BSG of 158 mg/dL, postop BSG of 176 mg/dL * Will give ~0.2 unit/kg basal dose to cover basal needs/one-time IV steroid * Start with aggressive Novolog, will likely need to loosen tomorrow PLAN FOR INPATIENT GLYCEMIC CONTROL: * Hold outpatient oral diabetes medications * Basal insulin * Lantus 20 units SC x 1 (~0.2 unit/kg) * Bolus insulin * NovoLog per scale ACHS or Q6hrs while NPO * Goal Range: Low 110 mg/dL - High 140 mg/dL * Correction Factor: 20 mg/dL/unit * Nutritional / Prandial insulin per carb ratio of 1 unit per 6 grams CHO consumed
[2022-01-03] MEDS: ACETAMINOPHEN 500 MG TAB PO SCH (21:30)
[2022-01-03] MEDS: ASPIRIN 81 MG ECTAB PO SCH (21:31)
[2022-01-03] MEDS: DOCUSATE SODIUM 100 MG CAP PO SCH (21:31)
[2022-01-04] MEDS: INSULIN ASPART PER UNIT SC SCH ×3 (00:11→08:53)
[2022-01-04] MEDS ORDERED: VANCOMYCIN HCL 1,250 MG in SODIUM CHLORIDE 0.9% 250 ML IV SCH (00:30)
[2022-01-04 00:59] LABS: Basophils # (auto) 0.04 K/uL (0-0.2); Basophils % (auto) 0.5 %; Eosinophils # (auto) 0.01 K/uL (0-0.50); Eosinophils % (auto) 0.1 %; Hematocrit (blood only) 38.6 % (40.1-51.0); Hemoglobin 13.4 g/dl (14.0-18.0); Immature Granulocytes # (auto) 0.08 K/uL (0.00-0.02); Immature Granulocytes % (auto) 1.1 %; Lymphocytes # (auto) 0.76 K/uL (1.2-3.4); Lymphocytes % (auto) 10.1 %; Mean Corpuscular Hemoglobin 35.5 pg (25.0-34.0); Mean Corpuscular Hgb Conc 34.7 g/dL (32.0-36.0); Mean Corpuscular Volume 102.4 fL (80.0-100.0); Mean Platelet Volume 9.9 fL (9.4-12.4); Monocytes # (auto) 1.09 K/uL (0.24-0.82); Monocytes % (auto) 14.5 %; Neutrophils # (auto) 5.52 K/uL (1.4-6.5); Neutrophils % (auto) 73.7 %; Platelet Count 133 K/uL (130-400); RDW Coefficient of Variation 13.7 % (11.5-14.5); RDW Standard Deviation 51.5 fL (36.4-46.3); Red Blood Count 3.77 M/uL (4.63-6.08)
[2022-01-04 01:29] LABS: BUN Creatinine Ratio 24.6 (10-20); Calcium 8.1 mg/dl (8.5-10.1); Creatinine Clr Calc Pharmacy 119.9 ml/min; Est GFR (African American) 115.1 ml/min; Est GFR (Non-African American) 99.3 ml/min
[2022-01-04] MEDS ORDERED: INSULIN HUMAN REGULAR PER UNIT 5 UNITS in SYRINGE 4.95 ML IV ONE (01:45)
[2022-01-04] MEDS: ACETAMINOPHEN 500 MG TAB PO SCH (06:06)
[2022-01-04] MEDS: SODIUM CHLORIDE 0.9% 1000ML 1,000 ML IV SCH (06:06)
[2022-01-04 06:49] LABS: BUN Creatinine Ratio 20.6 (10-20); Calcium 8.5 mg/dl (8.5-10.1); Creatinine Clr Calc Pharmacy 123.7 ml/min; Est GFR (African American) 116.5 ml/min; Est GFR (Non-African American) 100.5 ml/min; Potassium 4.5 mmol/L (3.5-5.1)
--- NOTE | 2022-01-04 07:16 | Orthopedic Progress Note ---
Date of Service January 04, 2022 Assessment & Plan (1) Full thickness rotator cuff tear: Plan: Postop day #1 left reverse shoulder arthroplasty -PT/OT-May do elbow/wrist/hand motion, shrugs. No shoulder motion. No formal therapy at this time. -Pain management as written -AM labs: Hemoglobin at 13.4 from 16 preop. Acute blood loss anemia likely due to surgical loss versus dilutional -DVT prophylaxis: SCDs, teds, home aspirin -Discharge planning: Plan on discharge home later today. Admission and Anticipated Discharge Date Admission Date: January 03, 2022 Subjective Postop day 1 left reverse total shoulder arthroplasty. Patient doing well this morning. He has no pain. He denies chest pain, shortness of breath, nausea/vomiting/diarrhea, lightheadedness/dizziness. Review of Systems Review of Systems: All systems reviewed & are unremarkable except as noted in Subjective Physical Exam Physical Exam: Left shoulder: Dressing is clean, dry, intact. Hemovac in place. Sling in place. Fingers are mobile with good unit manager convenience stores strength. Distally neurovascular status and sensation intact. Constitutional: WD/WN, vitals as above Results & Data ([facility]) Vital Signs (Past 12 Hours) Vital Signs Temp Pulse Resp BP Pulse Ox O2 Del Method O2 Flow Rate 01/04/22 07:12 36.6 C 110 H 16 114/71 95 Room Air 01/04/22 03:55 36.9 C 93 H 18 106/68 94 Room Air 01/03/22 20:30 Room Air 01/03/22 22:39 36.7 C 106 H 18 132/82 93 Room Air 01/03/22 19:30 36.3 C L 100 H 20 134/84 98 Nasal Cannula 2 Diagnostic Findings Lab Results 01/03/22 01/03/22 01/03/22 Range/Units 11:37 12:17 17:56 WBC (4.8-10.8) K/ul RBC (4.63-6.08) M/uL Hgb (14.0-18.0) g/dl Hct (40.1-51.0) % MCV (80.0-100.0) fL MCH (25.0-34.0) pg MCHC (32.0-36.0) g/dL RDW Std Deviation (36.4-46.3) fL RDW Coeff of Paul (11.5-14.5) % Plt Count (130-400) K/uL MPV (9.4-12.4) fL Immature Gran % (Auto) % Neut % (Auto) % Lymph % (Auto) % [place] % (Auto) % Eos % (Auto) % Baso % (Auto) % Neut # (Auto) (1.4-6.5) K/uL Lymph # (Auto) (1.2-3.4) K/uL [place] # (Auto) (0.24-0.82) K/uL Eos # (Auto) (0-0.50) K/uL Baso # (Auto) (0-0.2) K/uL Immature Gran # (Auto) (0.00-0.02) K/uL Sodium (136-145) mmol/L Potassium (3.5-5.1) mmol/L Chloride (98-107) mmol/L Carbon Dioxide (21-32) mmol/L Anion Gap (3-11) BUN (6-23) mg/dl Creatinine (0.6-1.4) mg/dl Est Cr Clr Drug Dosing ml/min Est GFR ( Amer) ml/min Est GFR (Non-Af Amer) ml/min BUN/Creatinine Ratio (10-20) Glucose (70-99(Fasting)) mg/dl POC Glucose 158 H 176 H (70-99) mg/dl Calcium (8.5-10.1) mg/dl SARS-CoV-2, RNA, NAAT NEGATIVE (NEGATIVE) 01/03/22 01/03/22 01/03/22 Range/Units 19:13 22:40 22:43 WBC (4.8-10.8) K/ul RBC (4.63-6.08) M/uL Hgb (14.0-18.0) g/dl Hct (40.1-51.0) % MCV (80.0-100.0) fL MCH (25.0-34.0) pg MCHC (32.0-36.0) g/dL RDW Std Deviation (36.4-46.3) fL RDW Coeff of Paul (11.5-14.5) % Plt Count (130-400) K/uL MPV (9.4-12.4) fL Immature Gran % (Auto) % Neut % (Auto) % Lymph % (Auto) % [place] % (Auto) % Eos % (Auto) % Baso % (Auto) % Neut # (Auto) (1.4-6.5) K/uL Lymph # (Auto) (1.2-3.4) K/uL [place] # (Auto) (0.24-0.82) K/uL Eos # (Auto) (0-0.50) K/uL Baso # (Auto) (0-0.2) K/uL Immature Gran # (Auto) (0.00-0.02) K/uL Sodium (136-145) mmol/L Potassium (3.5-5.1) mmol/L Chloride (98-107) mmol/L Carbon Dioxide (21-32) mmol/L Anion Gap (3-11) BUN (6-23) mg/dl Creatinine (0.6-1.4) mg/dl Est Cr Clr Drug Dosing ml/min Est GFR ( Amer) ml/min Est GFR (Non-Af Amer) ml/min BUN/Creatinine Ratio (10-20) Glucose (70-99(Fasting)) mg/dl POC Glucose 177 H 339 H* 364 H* (70-99) mg/dl Calcium (8.5-10.1) mg/dl SARS-CoV-2, RNA, NAAT (NEGATIVE) 01/04/22 01/04/22 01/04/22 Range/Units 00:08 00:09 00:51 WBC 7.50 (4.8-10.8) K/ul RBC 3.77 L (4.63-6.08) M/uL Hgb 13.4 L (14.0-18.0) g/dl Hct 38.6 L (40.1-51.0) % MCV 102.4 H (80.0-100.0) fL MCH 35.5 H (25.0-34.0) pg MCHC 34.7 (32.0-36.0) g/dL RDW Std Deviation 51.5 H (36.4-46.3) fL RDW Coeff of Paul 13.7 (11.5-14.5) % Plt Count 133 (130-400) K/uL MPV 9.9 (9.4-12.4) fL Immature Gran % (Auto) 1.1 % Neut % (Auto) 73.7 % Lymph % (Auto) 10.1 % [place] % (Auto) 14.5 % Eos % (Auto) 0.1 % Baso % (Auto) 0.5 % Neut # (Auto) 5.52 (1.4-6.5) K/uL Lymph # (Auto) 0.76 L (1.2-3.4) K/uL [place] # (Auto) 1.09 H (0.24-0.82) K/uL Eos # (Auto) 0.01 (0-0.50) K/uL Baso # (Auto) 0.04 (0-0.2) K/uL Immature Gran # (Auto) 0.08 H (0.00-0.02) K/uL Sodium (136-145) mmol/L Potassium (3.5-5.1) mmol/L Chloride (98-107) mmol/L Carbon Dioxide (21-32) mmol/L Anion Gap (3-11) BUN (6-23) mg/dl Creatinine (0.6-1.4) mg/dl Est Cr Clr Drug Dosing ml/min Est GFR ( Amer) ml/min Est GFR (Non-Af Amer) ml/min BUN/Creatinine Ratio (10-20) Glucose (70-99(Fasting)) mg/dl POC Glucose 337 H* 338 H* (70-99) mg/dl Calcium (8.5-10.1) mg/dl SARS-CoV-2, RNA, NAAT (NEGATIVE) 01/04/22 01/04/22 01/04/22 Range/Units 00:51 03:48 05:22 WBC (4.8-10.8) K/ul RBC (4.63-6.08) M/uL Hgb (14.0-18.0) g/dl Hct (40.1-51.0) % MCV (80.0-100.0) fL MCH (25.0-34.0) pg MCHC (32.0-36.0) g/dL RDW Std Deviation (36.4-46.3) fL RDW Coeff of Paul (11.5-14.5) % Plt Count (130-400) K/uL MPV (9.4-12.4) fL Immature Gran % (Auto) % Neut % (Auto) % Lymph % (Auto) % [place] % (Auto) % Eos % (Auto) % Baso % (Auto) % Neut # (Auto) (1.4-6.5) K/uL Lymph # (Auto) (1.2-3.4) K/uL [place] # (Auto) (0.24-0.82) K/uL Eos # (Auto) (0-0.50) K/uL Baso # (Auto) (0-0.2) K/uL Immature Gran # (Auto) (0.00-0.02) K/uL Sodium 133 L 137 (136-145) mmol/L Potassium 4.0 4.5 (3.5-5.1) mmol/L Chloride 102 104 (98-107) mmol/L Carbon Dioxide 25 30 (21-32) mmol/L Anion Gap 6 3 (3-11) BUN 16 13 (6-23) mg/dl Creatinine 0.65 0.63 (0.6-1.4) mg/dl Est Cr Clr Drug Dosing 119.9 123.7 ml/min Est GFR ( Amer) 115.1 116.5 ml/min Est GFR (Non-Af Amer) 99.3 100.5 ml/min BUN/Creatinine Ratio 24.6 H 20.6 H (10-20) Glucose 318 H* 195 H (70-99(Fasting)) mg/dl POC Glucose 208 H (70-99) mg/dl Calcium 8.1 L 8.5 (8.5-10.1) mg/dl SARS-CoV-2, RNA, NAAT (NEGATIVE) (1) Full thickness rotator cuff tear Rotator cuff tear trauma status: traumatic Encounter type: subsequent encount er Laterality: left Qualified Code(s): S46.012D - Strain of muscle(s) and tendon(s) of the rotator cuff of left shoulder, subsequent encounter
[2022-01-04] MEDS: DOCUSATE SODIUM 100 MG CAP PO SCH (08:54)
[2022-01-04] MEDS: ASPIRIN 81 MG ECTAB PO SCH (08:54)
[2022-01-04] MEDS ORDERED: POTASSIUM CHLORIDE CRTAB 20 MEQ TABCR PO SCH (09:00)
[2022-01-04] MEDS ORDERED: LANTUS PER UNIT CHARGE SQ ONE (09:00)
[2022-01-04] MEDS ORDERED: MULTIVITAMIN TAB PO SCH (09:00)
[2022-01-04] MEDS ORDERED: ATORVASTATIN 40 MG TAB PO SCH (09:00)
[2022-01-04] MEDS ORDERED: METOPROLOL SUCC 25MG EXT REL TAB PO SCH (09:00)
[2022-01-04] MEDS ORDERED: TAMSULOSIN HCL 0.4 MG CAP PO SCH (09:00)
[2022-01-04] MEDS ORDERED: CEROVITE ADV FORMULA TAB PO SCH (09:00)
--- NOTE | 2022-01-04 12:18 | Hospitalist Progress Note ---
Date of Service January 04, 2022 Assessment & Plan (1) Full thickness rotator cuff tear: Plan: POD#1 s/p left shoulder arthroplasty Per ortho for pain control, wound care, anticoagulation and activities Monitor H&H, continue incentive spirometry, PT/OT when appropriate (2) CAD (coronary artery disease): Plan: Continue aspirin, beta-enoc (3) DM type 2 (diabetes mellitus, type 2): Plan: Holding Jardiance and metformin. On insulin sliding scale (4) HTN (hypertension): Plan: Continue beta-enoc with hold parameters (5) Hyperlipidemia: Plan: Continue statin Plan Thank you for this consultation. We will follow the patient with you during their hospital stay. You can reach a member of the [facility] Team 17/09 via [employer]. Admission and Anticipated Discharge Date Admission Date: January 03, 2022 Supervising Physician Co-Signing Physician Notes Patient is seen and examined at bedside. Denies any pain of left shoulder surgical site. Feels well today. Had bowel movement. Denies any chest pain, shortness, dizziness, nausea, abdominal pain. Eager to get discharged. On exam patient is moderately built and nourished, no apparent distress, normocephalic atraumatic, EOMI, normal breath sounds, clear to auscultation, S1-S2, no murmur, no pedal edema, abdomen soft, nontender, normal bowel sounds, alert, awake, oriented, grossly nonfocal chest, left shoulder surgical site in dressing,+ drain. S/P left shoulder arthroplasty. Pain is controlled. Continue bowel regimen to prevent constipation. Monitor for postop anemia. Incentive spirometry. DVT prophylaxis as per primary team. Continue insulin while hospitalized for management of diabetes mellitus. Advised to follow-up with PCP upon discharge. I personally reviewed the record. Patient is interviewed and examined at bedside. Patient's care is coordinated with Gabriela Oconnell PA-C. Please refer to the documentation above for details of patient's presentation and for discussion of other issues. Subjective Patient seen and examined in 321. Feeling comfortable after shoulder surgery. Sitting in bedside chair without any pain. Has been able to participate with therapy. Nausea yesterday has resolved. No fever, chills, lightheadedness, chest pain, shortness of breath, vomiting, abdominal pain, dysuria, diarrhea or constipation. No urinary symptoms. Review of Systems Review of Systems: At least ten systems reviewed and negative except as noted in the HPI. Physical Exam Physical Exam: Gen: WD/WN, NAD, sitting in bedside chair, A&Ox3 HEENT: Normocephalic, atraumatic, conjunctivae moist, sclerae anicteric, mucous membranes moist Lung: Clear to Auscultation bilaterally, no wheezes/rales/rhonchi Heart: Regular rate, regular rhythm, no murmurs, rubs, or gallops Abdomen: Soft, NT, ND +BS x 4 Extremities: + L shoulder in sling, distally NVI, no edema Skin: Warm, no rash Results & Data Results & Data ([facility]) Vital Signs (Past 12 Hours) Vital Signs Temp Pulse Resp BP Pulse Ox O2 Del Method 01/04/22 11:16 36.6 C 110 H 16 114/71 95 01/04/22 07:12 36.6 C 110 H 16 114/71 95 Room Air 01/04/22 03:55 36.9 C 93 H 18 106/68 94 Room Air Laboratory Results Short CBC 01/04/22 Range/Units 00:51 WBC 7.50 (4.8-10.8) K/ul Hgb 13.4 L (14.0-18.0) g/dl Hct 38.6 L (40.1-51.0) % Plt Count 133 (130-400) K/uL BMP 01/04/22 01/04/22 00:51 05:22 Sodium 133 L 137 Potassium 4.0 4.5 Chloride 102 104 Carbon Dioxide 25 30 BUN 16 13 Creatinine 0.65 0.63 Glucose 318 H* 195 H Calcium 8.1 L 8.5 Diagnostic Findings Shoulder X-Ray 01/03/22 17:41 XR shoulder LT min 2V routine CLINICAL HISTORY: Post shoulder surgery COMPARISON: Left shoulder CT September 27, 2021. FINDINGS: Alignment of the reverse total left shoulder arthroplasty is anatomic. No periprosthetic fracture or unexpected radiopaque foreign body. Skin swapnil are present. There are surgical drains. There is mild elevation of the left hemidiaphragm, likely similar to prior CT. IMPRESSION: Expected findings following left shoulder arthroplasty. ACT 112: Negative or not required by law. Electronically signed by: Isai Esquivel M.D. 01/03/2022 6:22 PM (1) Full thickness rotator cuff tear Encounter type: subsequent encounter Laterality: left Rotator cuff tear trauma status: traumatic Qualified Code(s): S46.012D - Strain of muscle(s) and tendon(s) of the rotator cuff of left shoulder, subsequent encounter
--- NOTE | 2022-01-06 07:51 | Discharge Summary ---
Date of Service January 06, 2022 Admission HPI Per Admitting Provider 71yo male with PMHx significant for CAD, DM2, HTN, hx of NV presents with ongoing left shoulder pain. Pain interfering with his daily activity. He has failed conservative measures including injection. He would like to proceed with surgical intervention. Patient denies headaches, sweats, fevers, chills, double vision, blurred vision, cough, sore throat, dysphagia, chest pain, sob, wheezing, n/v/d/c, numbness, tingling, fatigue, urinary symptoms, mood disorders. ROS positive for left shoulder pain and stiffness. Admission Exam Per Admitting Provider Constitutional: well developed and well nourished; no acute distress Eyes: PERRL, conjunctivae normal, anicteric sclerae ENMT: external ear and nose normal, oropharynx normal Neck: trachea midline, no thyromegaly Respiratory: normal respiratory effort, lungs clear to auscultation Cardiovascular: RRR, no murmur, no edema Musculoskeletal: Left shoulder: crepitation with ROM. Tenderness anterolateral acromion. Positive impingement signs. Strength testing-3+/5 ER, 4+/5 abduction, 5/5 IR. Active abduction to 10 degrees, FF to 165 degrees. Skin: no rashes, warm and dry Neurologic: patellar DTR's 2+ bilat, sensation intact Psychiatric: A+Ox3, euthymic affect Principal Diagnosis Left shoulder rotator cuff arthropathy Discharge Exam Left shoulder: Dressing is clean, dry, intact. Hemovac in place. Sling in place. Fingers are mobile with good environmental studies program director strength. Distally neurovascular status and sensation intact. Constitutional WD/WN, vitals as above Discharge Data Allergies Allergy/AdvReac Type Severity Reaction Status Date / Time Penicillins Allergy Unknown RASH Verified 01/03/22 12:04 oxycodone [From OxyContin] AdvReac Intermediate lightheaded/passed Verified 01/03/22 12:05 out Consultations 01/02/22 15:40 Consult Hospitalist Routine Procedures Performed Operation Date: 01/03/22 14:35 Actual Procedures p Left Reverse Total Shoulder Arthroplasty, Two [place] Removal(Left) - Alhaji Philip MD Ordered Studies 01/03/22 05:00 US - OR guided needle placemen Routine Hospital Course (1) Full thickness rotator cuff tear: Postop day #1 left reverse shoulder arthroplasty -PT/OT-May do elbow/wrist/hand motion, shrugs. No shoulder motion. No formal therapy at this time. -Pain management as written -AM labs: Hemoglobin at 13.4 from 16 preop. Acute blood loss anemia likely due to surgical loss versus dilutional -DVT prophylaxis: SCDs, teds, home aspirin -Discharge planning: Plan on discharge home later today. Lab Results 01/03/22 01/03/22 01/03/22 Range/Units 11:37 12:17 17:56 WBC (4.8-10.8) K/ul RBC (4.63-6.08) M/uL Hgb (14.0-18.0) g/dl Hct (40.1-51.0) % MCV (80.0-100.0) fL MCH (25.0-34.0) pg MCHC (32.0-36.0) g/dL RDW Std Deviation (36.4-46.3) fL RDW Coeff of Paul (11.5-14.5) % Plt Count (130-400) K/uL MPV (9.4-12.4) fL Immature Gran % (Auto) % Neut % (Auto) % Lymph % (Auto) % [place] % (Auto) % Eos % (Auto) % Baso % (Auto) % Neut # (Auto) (1.4-6.5) K/uL Lymph # (Auto) (1.2-3.4) K/uL [place] # (Auto) (0.24-0.82) K/uL Eos # (Auto) (0-0.50) K/uL Baso # (Auto) (0-0.2) K/uL Immature Gran # (Auto) (0.00-0.02) K/uL Sodium (136-145) mmol/L Potassium (3.5-5.1) mmol/L Chloride (98-107) mmol/L Carbon Dioxide (21-32) mmol/L Anion Gap (3-11) BUN (6-23) mg/dl Creatinine (0.6-1.4) mg/dl Est Cr Clr Drug Dosing ml/min Est GFR ( Amer) ml/min Est GFR (Non-Af Amer) ml/min BUN/Creatinine Ratio (10-20) Glucose (70-99(Fasting)) mg/dl POC Glucose 158 H 176 H (70-99) mg/dl Calcium (8.5-10.1) mg/dl SARS-CoV-2, RNA, NAAT NEGATIVE (NEGATIVE) 01/03/22 01/03/22 01/03/22 Range/Units 19:13 22:40 22:43 WBC (4.8-10.8) K/ul RBC (4.63-6.08) M/uL Hgb (14.0-18.0) g/dl Hct (40.1-51.0) % MCV (80.0-100.0) fL MCH (25.0-34.0) pg MCHC (32.0-36.0) g/dL RDW Std Deviation (36.4-46.3) fL RDW Coeff of Paul (11.5-14.5) % Plt Count (130-400) K/uL MPV (9.4-12.4) fL Immature Gran % (Auto) % Neut % (Auto) % Lymph % (Auto) % [place] % (Auto) % Eos % (Auto) % Baso % (Auto) % Neut # (Auto) (1.4-6.5) K/uL Lymph # (Auto) (1.2-3.4) K/uL [place] # (Auto) (0.24-0.82) K/uL Eos # (Auto) (0-0.50) K/uL Baso # (Auto) (0-0.2) K/uL Immature Gran # (Auto) (0.00-0.02) K/uL Sodium (136-145) mmol/L Potassium (3.5-5.1) mmol/L Chloride (98-107) mmol/L Carbon Dioxide (21-32) mmol/L Anion Gap (3-11) BUN (6-23) mg/dl Creatinine (0.6-1.4) mg/dl Est Cr Clr Drug Dosing ml/min Est GFR ( Amer) ml/min Est GFR (Non-Af Amer) ml/min BUN/Creatinine Ratio (10-20) Glucose (70-99(Fasting)) mg/dl POC Glucose 177 H 339 H* 364 H* (70-99) mg/dl Calcium (8.5-10.1) mg/dl SARS-CoV-2, RNA, NAAT (NEGATIVE) 01/04/22 01/04/22 01/04/22 Range/Units 00:08 00:09 00:51 WBC 7.50 (4.8-10.8) K/ul RBC 3.77 L (4.63-6.08) M/uL Hgb 13.4 L (14.0-18.0) g/dl Hct 38.6 L (40.1-51.0) % MCV 102.4 H (80.0-100.0) fL MCH 35.5 H (25.0-34.0) pg MCHC 34.7 (32.0-36.0) g/dL RDW Std Deviation 51.5 H (36.4-46.3) fL RDW Coeff of Paul 13.7 (11.5-14.5) % Plt Count 133 (130-400) K/uL MPV 9.9 (9.4-12.4) fL Immature Gran % (Auto) 1.1 % Neut % (Auto) 73.7 % Lymph % (Auto) 10.1 % [place] % (Auto) 14.5 % Eos % (Auto) 0.1 % Baso % (Auto) 0.5 % Neut # (Auto) 5.52 (1.4-6.5) K/uL Lymph # (Auto) 0.76 L (1.2-3.4) K/uL [place] # (Auto) 1.09 H (0.24-0.82) K/uL Eos # (Auto) 0.01 (0-0.50) K/uL Baso # (Auto) 0.04 (0-0.2) K/uL Immature Gran # (Auto) 0.08 H (0.00-0.02) K/uL Sodium (136-145) mmol/L Potassium (3.5-5.1) mmol/L Chloride (98-107) mmol/L Carbon Dioxide (21-32) mmol/L Anion Gap (3-11) BUN (6-23) mg/dl Creatinine (0.6-1.4) mg/dl Est Cr Clr Drug Dosing ml/min Est GFR ( Amer) ml/min Est GFR (Non-Af Amer) ml/min BUN/Creatinine Ratio (10-20) Glucose (70-99(Fasting)) mg/dl POC Glucose 337 H* 338 H* (70-99) mg/dl Calcium (8.5-10.1) mg/dl SARS-CoV-2, RNA, NAAT (NEGATIVE) 01/04/22 01/04/22 01/04/22 Range/Units 00:51 03:48 05:22 WBC (4.8-10.8) K/ul RBC (4.63-6.08) M/uL Hgb (14.0-18.0) g/dl Hct (40.1-51.0) % MCV (80.0-100.0) fL MCH (25.0-34.0) pg MCHC (32.0-36.0) g/dL RDW Std Deviation (36.4-46.3) fL RDW Coeff of Paul (11.5-14.5) % Plt Count (130-400) K/uL MPV (9.4-12.4) fL Immature Gran % (Auto) % Neut % (Auto) % Lymph % (Auto) % [place] % (Auto) % Eos % (Auto) % Baso % (Auto) % Neut # (Auto) (1.4-6.5) K/uL Lymph # (Auto) (1.2-3.4) K/uL [place] # (Auto) (0.24-0.82) K/uL Eos # (Auto) (0-0.50) K/uL Baso # (Auto) (0-0.2) K/uL Immature Gran # (Auto) (0.00-0.02) K/uL Sodium 133 L 137 (136-145) mmol/L Potassium 4.0 4.5 (3.5-5.1) mmol/L Chloride 102 104 (98-107) mmol/L Carbon Dioxide 25 30 (21-32) mmol/L Anion Gap 6 3 (3-11) BUN 16 13 (6-23) mg/dl Creatinine 0.65 0.63 (0.6-1.4) mg/dl Est Cr Clr Drug Dosing 119.9 123.7 ml/min Est GFR ( Amer) 115.1 116.5 ml/min Est GFR (Non-Af Amer) 99.3 100.5 ml/min BUN/Creatinine Ratio 24.6 H 20.6 H (10-20) Glucose 318 H* 195 H (70-99(Fasting)) mg/dl POC Glucose 208 H (70-99) mg/dl Calcium 8.1 L 8.5 (8.5-10.1) mg/dl SARS-CoV-2, RNA, NAAT (NEGATIVE) 01/04/22 Range/Units 08:45 WBC (4.8-10.8) K/ul RBC (4.63-6.08) M/uL Hgb (14.0-18.0) g/dl Hct (40.1-51.0) % MCV (80.0-100.0) fL MCH (25.0-34.0) pg MCHC (32.0-36.0) g/dL RDW Std Deviation (36.4-46.3) fL RDW Coeff of Paul (11.5-14.5) % Plt Count (130-400) K/uL MPV (9.4-12.4) fL Immature Gran % (Auto) % Neut % (Auto) % Lymph % (Auto) % [place] % (Auto) % Eos % (Auto) % Baso % (Auto) % Neut # (Auto) (1.4-6.5) K/uL Lymph # (Auto) (1.2-3.4) K/uL [place] # (Auto) (0.24-0.82) K/uL Eos # (Auto) (0-0.50) K/uL Baso # (Auto) (0-0.2) K/uL Immature Gran # (Auto) (0.00-0.02) K/uL Sodium (136-145) mmol/L Potassium (3.5-5.1) mmol/L Chloride (98-107) mmol/L Carbon Dioxide (21-32) mmol/L Anion Gap (3-11) BUN (6-23) mg/dl Creatinine (0.6-1.4) mg/dl Est Cr Clr Drug Dosing ml/min Est GFR ( Amer) ml/min Est GFR (Non-Af Amer) ml/min BUN/Creatinine Ratio (10-20) Glucose (70-99(Fasting)) mg/dl POC Glucose 295 H (70-99) mg/dl Calcium (8.5-10.1) mg/dl SARS-CoV-2, RNA, NAAT (NEGATIVE) Total Time Total Time Spent Total Time Spent (In Minutes): 20 Discharge Plan Discharge Items Patient Disposition: Home - Self-Care Reason For Visit: Left Shoulder Rotator Cuff Arthropathy Discharge Diagnosis: Left shoulder rotator cuff arthropathy Activity: Per Instructions section Non-emergency contact: Surgeon Call non-emergency contact if: you have any medication questions, your pain is not controlled, your pain is concerning for you, you have a fever, your temperature is above 101, your wound has increased redness and your wound has increased drainage Follow-up/Referrals: Russel Dozier MD [Primary Care Provider] - Diet: Regular Addtl Attending Provider Instructions: ACTIVITY RECOMMENDATIONS: SELF CARE INSTRUCTIONS AFTER TOTAL SHOULDER ARTHROPLASTY REVERSE A. You may do daily exercises as taught in physical therapy while in hospital. No lifting with the operative arm. B. You are to wear your sling/immobilizer at all times EXCEPT when performing your daily exercises and for hygiene purposes. C. You may perform dry, daily dressing changes. Please keep your incision covered. You may shower 48 hours after surgery. Do not apply soap or any ointment/lotions directly over incision. Do not soak incision in bath tub/swimming pool. D. You may use ice as needed to operative shoulder. SPECIAL CARE INSTRUCTIONS: VERY IMPORTANT TO READ AND REVIEW A. There are a few signs you need to watch for after you are home. Call [facility] at [phone] if you experience any of the followin. Increased severe shoulder pain. Some pain is expected especially when you exercise. 2. Increased swelling in you shoulder or arm; pain or swelling in either upper extremity. 3. Any fluid drainage from the incision. 4. Shortness of breath or chest pain. B. Please call [facility] at [phone] if you have any questions or concerns about your operation or recovery. C. Call your physician if: 1. Temperature is greater than 101 degrees (F). 2. Pain is not relieved by prescribed pain medications. 3. Increase drainage or redness from incision. 4. Unanswered questions or concerns. FOLLOW UP VISIT: Please call [facility] at [phone] to schedule a follow up appointment with Dr. Philip or his PA in 12-14 days from your surgery date. Pending Studies at Discharge: No Stand-Alone Forms: My [facility], Smoking Cessation Medications and DC Order Prescriptions: New acetaminophen [Tylenol Extra Strength] 500 mg Tablet 1,000 mg PO Q8 Qty: 60 0RF tramadol 50 mg Tablet 50 - 100 mg PO .Q4h-6h MDD 6 PRN (Reason: pain) Qty: 30 0RF Rx Instructions: Ongoing therapy, Dr. Philip supervising sulfamethoxazole-trimethoprim [Bactrim DS] 800-160 mg tablet 1 tab PO BID Qty: 14 0RF Continued atorvastatin 40 mg Tablet 40 mg PO QAM tamsulosin 0.4 mg Capsule 0.4 mg PO QAM nitroglycerin 0.4 mg Tablet, Sublingual 0.4 mg sublingual UD PRN (Reason: Chest Pain) metoprolol succinate 25 mg Tablet Extended Release 24 Hr 25 mg PO QAM Men's One Daily Tablet 1 tab PO QAM metformin 1,000 mg Tablet Extended Release 24 Hr 500 - 1,000 mg PO UD Rx Instructions: 1000mg QAM, 500pm Lunchtime; 1000mg at HS potassium chloride 20 mEq Tablet Extended Release 20 meq PO QAM Jardiance 25 mg Tablet 25 mg PO QAM aspirin 81 mg Capsule 81 mg PO BID Discontinued acetaminophen 500 mg Tablet 1,000 mg PO Q8H PRN (Reason: Pain) Discharge Orders: Discharge Order (Routine); Ordered 01/04/22 Ordered By: Hernando Wagner Admission Data Admit Date/Time: 01/03/22 17:41 Attending Provider: Alhaji Philip Admit Provider: Alhaji Philip Primary Care Provider: Russel Dozier Other Providers: Daniel Greco ; Navjot Leung ; Gabriela Oconnell Other Interventions: Discharge Summary Assessment (RN) Last Done: 01/04/22 11:16
== END 2022-01-04 12:20 | disposition home or self-care (01) | DRG 483 ==
LOC: ASU 11:18 → 3E 17:41